=== PATIENT | female | born 1945 | race Caucasian/White ===

== ENCOUNTER 2017-10-18 16:01 | Inpatient (IN) | payer SELFPAY ==
[2017-10-18] MEDS ORDERED: NACL 0.9% 1000 ML IV ONE (16:24)
[2017-10-18] MEDS ORDERED: D50W (25GM) Syringe IV ONE ×3 (16:36→19:58)
[2017-10-18 16:40] LABS: Hematocrit 29.7 % (30.3-42.9); Hemoglobin 10.1 gm/dl (10.1-14.3); Mean Corpuscular HGB Conc 34 % (30-34); Mean Corpuscular Hemoglobin 35 pg (28-32); Mean Corpuscular Volume 102 fl (79-97); Red Blood Count 2.91 M/mm3 (3.65-5.03); Red Cell Distribution Width 19.5 % (13.2-15.2)
[2017-10-18] MEDS ORDERED: D50W (25GM) Vial IV ONE (16:52)
[2017-10-18 16:59] LABS: Alanine Aminotransferase 35 units/L (7-56); Albumin 1.7 g/dL (3.9-5); BUN/Creatinine Ratio 52; Blood Urea Nitrogen 31 mg/dL (7-17); Calcium 7.3 mg/dL (8.4-10.2); Hemolysis Index 37
[2017-10-18 17:10] LABS: Bacteria,Urine 1+ /HPF (Negative); Bilirubin,Urine NEG (Negative); Blood,Urine NEG (Negative); Color,Urine Amber (Yellow); Mucus,Urine 3+ /HPF
[2017-10-18 17:10] LABS: Basophils % (Manual) 0 % (0.0-1.8); Eosinophils % (Manual) 0 % (0.0-4.3); Total Cells Counted 100
[2017-10-18 17:12] LABS: Anisocytosis 1+; Macrocytosis Few; Platelet Estimate Appears Decreased
[2017-10-18 17:13] LABS: Poikilocytosis 1+
[2017-10-18 17:14] LABS: Platelet Count 35 K/mm3 (140-440)
--- NOTE | 2017-10-18 17:24 | XRay Report ---
FINAL REPORT PROCEDURE: XR CHEST 1V AP TECHNIQUE: A portable AP chest radiograph was obtained at 10/18/2017 20:52 (T) . CPT 34150 HISTORY: Dyspnea. COMPARISON: No prior studies are available for comparison. FINDINGS: Heart: Normal. Mediastinum/Vessels: Aortic calcification and tortuosity. Prominence of the pulmonary arteries. Lungs/Pleural space: Mild hyperinflation. Diffuse peribronchial thickening and interstitial prominence. More focal left retrocardiac opacity. Bony thorax: Moderate osteopenia. Degenerative changes of the spine. Possible minimally displaced right 4th and 5th rib fractures. Life support devices: None. IMPRESSION: Aortic calcification and tortuosity. Prominence of the pulmonary arteries, consider pulmonary hypertension. Hyperinflation suggests obstructive physiology. Peribronchial thickening, consider bronchitis/pneumonitis. Diffuse interstitial prominence. More focal left retrocardiac opacity. Consider atelectasis, cannot exclude pneumonia.
[2017-10-18 17:46] LABS: Chol/HDL Ratio 24.37 %
[2017-10-18] MEDS ORDERED: NACL 0.9% 1000 ML 1,000 ML IV ONE (18:00)
--- NOTE | 2017-10-18 18:05 | Emergency Department Report ---
HPI - General Chief Complaint: Altered Mental Status Time Seen by Provider: 10/18/17 16:01 - HPI HPI: The patient is a 71-year-old female with a history of cirrhosis, who presents for evaluation of cough and fever. The patient's daughter, the patient has exhibited a productive cough and fever for the past 3 days, associated with decreased drowziness and fatigue, severe, exacerbated with exertion, constant for the past one day. Per EMS the patient was found to have a fever, some to 101.2 Fahrenheit, and low blood pressure and O2 sat on scene. The patient denies headache, neck pain or stiffness, chest pain, back pain, hemoptysis, dysuria, diarrhea. ED Past Medical Hx - Social History Smoking Status: Unknown if ever smoked ED Review of Systems ROS: Stated complaint: UNRESPONSIVE Other details as noted in HPI Constitutional: denies: fever ENT: denies: throat or neck pain Respiratory: reports cough, shortness of breath Cardiovascular: denies: chest pain Endocrine: denies unexplained weight loss or gain Gastrointestinal: denies: abdominal pain, nausea Genitourinary: denies: dysuria Musculoskeletal: denies: leg swelling Skin: denies: rash Neurological: reports AMS (per daughter) denies: headache Hematological/Lymphatic: denies: easy bleeding or easy bruising Psych: denies sadness or hopelessness Physical Exam - Physical Exam Vital Signs: Vital Signs 10/18/17 10/18/17 16:58 17:00 Temperature 98.1 F Pulse Rate 124 H Respiratory 20 20 Rate Blood Pressure 130/79 [Right] O2 Sat by Pulse 100 100 Oximetry Physical Exam: General: well-nourished, well-developed, no acute distress Head: Normocephalic, atraumatic Eyes: normal sclera ENT: Mucous membranes are pale and dry Neck: No neck stiffness, no cervical adenopathy Respiratory: Diminished breath sounds and rhonchi present and bibasilar lung durán Cardio: S1 and S2 present, no murmurs, rubs, gallops, capillary refill is delayed Abdomen: Normoactive bowel sounds, soft abdomen, no rigidity, no guarding or rebound tenderness Musc: No pitting edema Skin: No rash Neuro: no facial drooping, normal speech Psych: Normal affect ED Course Vital Signs 10/18/17 10/18/17 16:58 17:00 Temperature 98.1 F Pulse Rate 124 H Respiratory 20 20 Rate Blood Pressure 130/79 [Right] O2 Sat by Pulse 100 100 Oximetry ED Medical Decision Making - Lab Data Result diagrams: 10/18/17 16:34 10/18/17 16:34 - Medical Decision Making The patient was seen and examined by myself. The patient is placed on a clinical research monitor and continuous pulse ox. On initial evaluation, the patient was found to be in respiratory distress, with severe tachycardia. The patient is placed on supplemental oxygen, and given normal saline fluid boluses for treatment of her tachycardia and dehydration. Evaluation orders were placed. X -ray of the chest reveals temperature concerning for pneumonia. As the patient was found to be febrile per EMS, and is found to have tachycardia and pneumonia on evaluation, the patient will be treated for sepsis. The patient given Zosyn for treatment of sepsis secondary to pneumonia, and she was given 30 cc/kg fluid bolus. Multiple bedside assessments were performed to assess patient's responsiveness to fluids resuscitation. Lab results reveal severely low sodium level, 117, elevated potassium level of 5.7, elevated wbc of 14, severely elevated lactic acid of 8, low glucose, for which she was given an amp of D50, elevated TSH, low free T4, and elevated urine WBC. The on-call hospitalist service was contacted. They agreed to admit the patient for further treatment and close monitoring. The ED admit order was placed. The patient was admitted in guarded condition. Critical Care Time: Yes Critical care time in (mins) excluding proc time.: 35 Critical care attestation.: Due to the critical nature of this patients presentation, which necessitated multiple bedside assessments, manipulation and supportive measures to prevent further life threatening deterioration, I would like to bill for a total of 35 minutes of critical care time. This was exclusive of any separately billable procedures. Critical Care Time: 35 min ED Disposition Clinical Impression: Severe dehydration, Acute hyperkalemia, Lactic acidosis, Hypoglycemia, Acute hyponatremia Sepsis Qualifiers: Sepsis type: sepsis due to unspecified organism Qualified Code(s): A41.9 - Sepsis, unspecified organism Disposition: OP ADMIT IP TO THIS HOSP Is pt being admited?: Yes Does the pt Need Aspirin: Yes Condition: Critical Referrals: PRIMARY CARE, [Primary Care Provider] - 3-5 Days Time of Disposition: 17:01
[2017-10-18] MEDS ORDERED: PROVENTIL IH PRN (18:06)
[2017-10-18] MEDS ORDERED: SODIUM CHLORIDE FLUSH SYRINGE 10 ML IV PRN (18:06)
[2017-10-18] MEDS ORDERED: TYLENOL PO PRN (18:06)
[2017-10-18] MEDS ORDERED: ZOFRAN IV PRN (18:06)
[2017-10-18] MEDS ORDERED: VANCOMYCIN 750 MG in NACL 0.9% 500 ML 500 ML IV ONE (18:06)
[2017-10-18] MEDS ORDERED: ASPIRIN PR ONE (18:06)
--- NOTE | 2017-10-18 18:10 | History and Physical Report ---
History of Present Illness Chief complaint: Unresponsive History of present illness: 71 YO Female with HCV, Cirrhosis, presents to ED for evaluation. Pt is lethargic and unable to provide history. Pt history provided by daughter, who is at bedside during exam and interview. As per daughter, the patient has experienced fever, and productive cough over the past 3 days with persistent symptoms over the same time frame. Pt was found to be confused today by daughter, and EMS was notified. Upon arrival, the patient was found to be hypotensive. Pt transported to [facility] for further care and evaluation. Pt seen and evaluated in ED and found to have Sepsis, Encephalopathy, and Lactic Acidosis. Pt initiated on Sepsis protocol and admitted to telemetry. Past History Past Medical History: hepatitis Past Surgical History: No surgical history (reviewed) Social history: single. denies: smoking, alcohol abuse, prescription drug abuse Family history: no significant family history (reviewed) Medications and Allergies Allergies Allergy/AdvReac Type Severity Reaction Status Date / Time Unable to Assess Allergy Unverified 10/18/17 17:00 Active Meds: Active Medications Acetaminophen (Tylenol) 650 mg PO Q4H PRN PRN Reason: Pain MILD(1-3)/Fever >100.5/FITZPATRICK Albuterol (Proventil) 2.5 mg IH Q4HRT PRN PRN Reason: Shortness Of Breath Piperacillin Sod/Tazobactam Sod (Zosyn/Ns 3.375gm/50ml) 3.375 gm in 50 mls @ 100 mls/hr IV Q6HR DANIEL Sodium Chloride (Nacl 0.9% 1000 Ml) 1,000 mls @ 999 mls/hr IV BOLUS ONE Stop: 10/18/17 19:00 Vancomycin HCl 750 mg/ Sodium (Chloride) 507.5 mls @ 333 mls/hr IV ONCE ONE; Protocol Stop: 10/18/17 19:37 Piperacillin Sod/Tazobactam Sod (Zosyn/Ns 4.5gm/100ml) 4.5 gm in 100 mls @ 200 mls/hr IV Q8HR DANIEL; Protocol Ondansetron HCl (Zofran) 4 mg IV Q8H PRN PRN Reason: Nausea And Vomiting Sodium Chloride (Sodium Chloride Flush Syringe 10 Ml) 10 ml IV BID DANIEL Sodium Chloride (Sodium Chloride Flush Syringe 10 Ml) 10 ml IV PRN PRN PRN Reason: LINE FLUSH Review of Systems ROS unobtainable: due to mental status Exam - Constitutional Vitals: Temp Pulse Resp BP Pulse Ox 98.1 F 124 H 20 130/79 100 10/18/17 17:00 10/18/17 17:00 10/18/17 17:00 10/18/17 17:00 10/18/17 17:00 General appearance: Present: mild distress - EENT Eyes: Present: miosis - Neck Neck: Present: supple, normal ROM - Respiratory Respiratory effort: labored Respiratory: bilateral: diminished - Cardiovascular Rhythm: other (tachycardia) Heart Sounds: Present: S1 & S2. Absent: rub, click - Extremities Extremities: pulses symmetrical, No edema Peripheral Pulses: abnormal (capillary refill greater than 3.5 seconds) - Abdominal General gastrointestinal: Present: soft, non-tender, non-distended, normal bowel sounds Female genitourinary: Present: normal - Integumentary Integumentary: Present: clear, warm, dry - Musculoskeletal Musculoskeletal: generalized weakness - Psychiatric Psychiatric: no intact judgment & insight, no memory intact Results - Labs CBC & Chem 7: 10/18/17 16:34 10/18/17 18:30 Labs: Abnormal lab results 10/18/17 10/18/17 10/18/17 Range/Units 16:28 16:34 16:34 WBC 14.0 H (4.5-11.0) K/mm3 RBC 2.91 L (3.65-5.03) M/mm3 Hct 29.7 L (30.3-42.9) % MCV 102 H (79-97) fl MCH 35 H (28-32) pg RDW 19.5 H (13.2-15.2) % Plt Count 35 L (140-440) K/mm3 Seg Neuts % (Manual) 97 H (40.0-70.0) % Lymphocytes % (Manual) 2 L (13.4-35.0) % Seg Neutrophils # Man 13.5 H (1.8-7.7) K/mm3 Lymphocytes # (Manual) 0.2 L (1.2-5.4) K/mm3 POC ABG pCO2 (35-45) POC ABG pO2 (80-105) Sodium (137-145) mmol/L Potassium (3.6-5.0) mmol/L Chloride (98-107) mmol/L Carbon Dioxide (22-30) mmol/L BUN (7-17) mg/dL Creatinine (0.7-1.2) mg/dL Glucose (65-100) mg/dL POC Glucose (70-105) Lactic Acid (0.7-2.0) mmol/L Calcium (8.4-10.2) mg/dL Total Bilirubin (0.1-1.2) mg/dL AST (5-40) units/L Alkaline Phosphatase (35-129) units/L Total Creatine Kinase (30-135) units/L Troponin T 0.032 H (0.00-0.029) ng/mL Total Protein (6.3-8.2) g/dL Albumin (3.9-5) g/dL Triglycerides 269 H (2-149) mg/dL HDL Cholesterol 8 L (40-59) mg/dL Urine WBC (Auto) 18.0 H (0.0-6.0) /HPF 10/18/17 10/18/17 10/18/17 Range/Units 16:34 16:34 16:34 WBC (4.5-11.0) K/mm3 RBC (3.65-5.03) M/mm3 Hct (30.3-42.9) % MCV (79-97) fl MCH (28-32) pg RDW (13.2-15.2) % Plt Count (140-440) K/mm3 Seg Neuts % (Manual) (40.0-70.0) % Lymphocytes % (Manual) (13.4-35.0) % Seg Neutrophils # Man (1.8-7.7) K/mm3 Lymphocytes # (Manual) (1.2-5.4) K/mm3 POC ABG pCO2 (35-45) POC ABG pO2 (80-105) Sodium 117 L* (137-145) mmol/L Potassium 5.7 H (3.6-5.0) mmol/L Chloride 82.0 L (98-107) mmol/L Carbon Dioxide 15 L (22-30) mmol/L BUN 31 H (7-17) mg/dL Creatinine 0.6 L (0.7-1.2) mg/dL Glucose 61 L (65-100) mg/dL POC Glucose (70-105) Lactic Acid 8.30 H* (0.7-2.0) mmol/L Calcium 7.3 L (8.4-10.2) mg/dL Total Bilirubin 2.60 H (0.1-1.2) mg/dL AST 162 H (5-40) units/L Alkaline Phosphatase 179 H (35-129) units/L Total Creatine Kinase 706 H (30-135) units/L Troponin T (0.00-0.029) ng/mL Total Protein 5.0 L (6.3-8.2) g/dL Albumin 1.7 L (3.9-5) g/dL Triglycerides (2-149) mg/dL HDL Cholesterol (40-59) mg/dL Urine WBC (Auto) (0.0-6.0) /HPF 10/18/17 10/18/17 Range/Units 16:40 16:42 WBC (4.5-11.0) K/mm3 RBC (3.65-5.03) M/mm3 Hct (30.3-42.9) % MCV (79-97) fl MCH (28-32) pg RDW (13.2-15.2) % Plt Count (140-440) K/mm3 Seg Neuts % (Manual) (40.0-70.0) % Lymphocytes % (Manual) (13.4-35.0) % Seg Neutrophils # Man (1.8-7.7) K/mm3 Lymphocytes # (Manual) (1.2-5.4) K/mm3 POC ABG pCO2 22.0 L (35-45) POC ABG pO2 177 H (80-105) Sodium (137-145) mmol/L Potassium (3.6-5.0) mmol/L Chloride (98-107) mmol/L Carbon Dioxide (22-30) mmol/L BUN (7-17) mg/dL Creatinine (0.7-1.2) mg/dL Glucose (65-100) mg/dL POC Glucose 51 L (70-105) Lactic Acid (0.7-2.0) mmol/L Calcium (8.4-10.2) mg/dL Total Bilirubin (0.1-1.2) mg/dL AST (5-40) units/L Alkaline Phosphatase (35-129) units/L Total Creatine Kinase (30-135) units/L Troponin T (0.00-0.029) ng/mL Total Protein (6.3-8.2) g/dL Albumin (3.9-5) g/dL Triglycerides (2-149) mg/dL HDL Cholesterol (40-59) mg/dL Urine WBC (Auto) (0.0-6.0) /HPF Assessment and Plan - Patient Problems (1) Sepsis Current Visit: Yes Status: Acute Qualifiers: Sepsis type: sepsis due to unspecified organism Qualified Code(s): A41.9 - Sepsis, unspecified organism Plan to address problem: IVF resuscitation therapy, monitor uop q shift, serial lactic acid, CBC, CMP, blood cultures, urinalysis, IV antibiotic therapy (2) Hyponatremia syndrome Current Visit: Yes Status: Acute Plan to address problem: IVF resuscitation therapy, (3) Encephalopathy Current Visit: Yes Status: Acute Plan to address problem: CT Head, neuro check, aspiration precautions, neuro checks, (4) Hypoglycemia Current Visit: Yes Status: Acute Plan to address problem: D5, repeat serum glucose (5) Lactic acidosis Current Visit: Yes Status: Acute Plan to address problem: IV bicarbonate x1, treat sepsis, ivf resuscitation, serial lactic acid (6) Hypothyroid coma Current Visit: Yes Status: Acute Plan to address problem: IV synthroid, supportive care (7) DVT prophylaxis Current Visit: Yes Status: Acute Plan to address problem: scd to ble while in bed
[2017-10-18] MEDS ORDERED: NACL 0.9% 1000 ML 3,000 ML IV ONE (18:12)
[2017-10-18] MEDS: ZOSYN/NS 3.375GM/50ML 3.375 GM/50 ML BAG IV SCH ×2 (18:17→23:48)
[2017-10-18] MEDS ORDERED: SODIUM BICARBONATE IV ONE ×2 (18:21→19:00)
[2017-10-18] MEDS ORDERED: VANCOMYCIN 750 MG in NACL 0.9% 250ML 250 ML IV ONE (19:00)
[2017-10-18 19:07] LABS: BUN/Creatinine Ratio 47; Blood Urea Nitrogen 28 mg/dL (7-17); Calcium 6.6 mg/dL (8.4-10.2); Hemolysis Index 21
[2017-10-18 19:27] LABS: Free T4 (Free Thyroxine) 0.62 ng/dL (0.76-1.46)
[2017-10-18] MEDS ORDERED: ZOSYN/NS 4.5GM/100ML 4.5 GM/100 ML VIAL IV SCH (22:00)
[2017-10-18] MEDS: SODIUM CHLORIDE FLUSH SYRINGE 10 ML IV SCH (23:49)
[2017-10-19] MEDS ORDERED: SYNTHROID IV SCH (06:00)
[2017-10-19] MEDS: ZOSYN/NS 3.375GM/50ML 3.375 GM/50 ML BAG IV SCH ×2 (06:46→12:11)
[2017-10-19 10:17] VITALS: BP 98/56
[2017-10-19] MEDS: SYNTHROID IV SCH (10:51)
[2017-10-19] MEDS: SODIUM CHLORIDE FLUSH SYRINGE 10 ML IV SCH ×2 (10:51→23:31)
[2017-10-19] MEDS ORDERED: D50W (25GM) Syringe IV ONE (11:00)
[2017-10-19 11:14] LABS: BUN/Creatinine Ratio 54; Blood Urea Nitrogen 27 mg/dL (7-17); Calcium 6.8 mg/dL (8.4-10.2); Hemolysis Index 735
--- NOTE | 2017-10-19 11:42 | Consultation ---
History of Present Illness - Reason for Consult Consult date: 10/19/17 hyponatremia, hyperkalemia - History of Present Illness The patient is a 71 YO Female with history significant for HCV and Cirrhosis who presented to ED for evaluation of AMS. Patient is not able to provide any history and the family members speak very little Burmese. History was also obtained from previous documentation. Per daughter, the patient had experienced fever and productive cough for 3 days with persistent symptoms. Pt was found to be confused and EMS transported to the ER. The patient was found hypotensive in [facility] ER. Pt was admitted for Sepsis, Encephalopathy, Hyponatremia and Lactic Acidosis. Initial labs were significant for Na 117, K 5.7 and Lactate 8.3. Sodium level improved to 126 and K improved to 5. Past History Past Medical History: hepatitis Past Surgical History: No surgical history (reviewed) Social history: single. denies: smoking, alcohol abuse, prescription drug abuse Family history: no significant family history (reviewed) Medications and Allergies Allergies Allergy/AdvReac Type Severity Reaction Status Date / Time No Known Allergies Allergy Unverified 10/20/17 06:34 Active Meds: Active Medications Acetaminophen (Tylenol) 650 mg PO Q4H PRN PRN Reason: Pain MILD(1-3)/Fever >100.5/FITZPATRICK Albuterol (Proventil) 2.5 mg IH Q4HRT PRN PRN Reason: Shortness Of Breath Piperacillin Sod/Tazobactam Sod (Zosyn/Ns 3.375gm/50ml) 3.375 gm in 50 mls @ 100 mls/hr IV Q6HR DANIEL Last Admin: 10/19/17 06:46 Dose: 100 mls/hr Sodium Chloride (Nacl 0.9% 1000 Ml) 3,000 mls @ 125 mls/hr IV BOLUS ONE Stop: 10/19/17 17:59 Last Admin: 10/18/17 18:35 Dose: 125 mls/hr Vancomycin HCl (Vancomycin/Ns 500 Mg/100 Ml) 500 mg in 100 mls @ 66.667 mls/hr IV Q24H DANIEL Sodium Chloride (Nacl 0.9% 1000 Ml) 1,000 mls @ 125 mls/hr IV DIRECT DANIEL Levothyroxine Sodium (Synthroid) 100 mcg IV DAILY DANIEL Last Admin: 10/19/17 10:51 Dose: 100 mcg Ondansetron HCl (Zofran) 4 mg IV Q8H PRN PRN Reason: Nausea And Vomiting Sodium Chloride (Sodium Chloride Flush Syringe 10 Ml) 10 ml IV BID DANIEL Last Admin: 10/19/17 10:51 Dose: 10 ml Sodium Chloride (Sodium Chloride Flush Syringe 10 Ml) 10 ml IV PRN PRN PRN Reason: LINE FLUSH Review of Systems ROS unobtainable: due to mental status Exam - Vital Signs Vital signs: Vital Signs Resp Pulse Ox 20 100 10/18/17 16:58 10/18/17 16:58 - General Appearance General appearance: well-developed, appears stated age, chronically ill, other ( emaciated) EENT: ATNC Neck: Present: neck supple, trachea midline Respiratory: Clear to Ascultation Heart: regular, S1S2, no murmurs Gastrointestinal: Present: normoactive bowel sounds. Absent: tenderness Integumentary: no rash, warm and dry Neurologic: obtunded Musculoskeletal: Present: other (trace pedal edema noted) Results - Lab Results 10/20/17 04:59 10/20/17 04:59 Most recent lab results Calcium 6.8 mg/dL (8.4-10.2) L 10/19/17 10:42 Assessment and Plan 1. Hyponatremia: Hyponatremia likely secondary to volume depletion. Sodium level has improved appropriately. Monitor Sodium level. 2. Hyperkalemia: Improved. 3. Metabolic acidosis: Continue IV fluids. 4. Sepsis. 5. Respiratory failure. 6. Encephalopathy. D/w family members.
[2017-10-19] MEDS: NACL 0.9% 1000 ML 1,000 ML IV SCH ×2 (12:15→20:17)
[2017-10-19] MEDS ORDERED: SODIUM BICARBONATE IV ONE ×3 (12:28→15:30)
--- NOTE | 2017-10-19 12:41 | Progress Note ---
Assessment and Plan Assessment and plan: Patient is a 71 yo Portuguese speaking woman with a history of Cirrhosis per chart (first visit here in EMR) who presented with AMS, cough, fever. She was found to have temp of 101.2 Fahrenheit, hypotension and hypoxia per EMS. Patient is not giving any history. Patient is critically ill on my initial assessment, she is arousable only by deep sternal rub, on NRB 100% fiO2. I will move to ICU. * WBC 14.0, Hgb 10.1, MCV 102, plt 35 * Na 117, k 5.4, CO2 14, BUN 28, Cr 0.6, BG 51, lactic acid 7.0, albumin 1.7, Troponin T 0.272, Ca 6.6, Total biliriubin 2.6, Alk Phos 162, AST 162, ALT 35, CPK 706, * TSH 5.060 with free t4 0.62 * UA wbc 18, 1+ bacteria * pCXR IMPRESSION: Aortic calcification and tortuosity. Prominence of the pulmonary arteries, consider pulmonary hypertension. Hyperinflation suggests obstructive physiology. Peribronchial thickening, consider bronchitis/ pneumonitis. Diffuse interstitial prominence. More focal left retrocardiac opacity. Consider atelectasis, cannot exclude pneumonia. -Acute hypoxic respiratory failure, poa: On 100% NRB, transfer to ICU, she is breathing hard and will fatigue -Sepsis with Acute Aspiration Pneumonitis and UTI: on iv zosyn, and iv vancomycin, follow cultures -Severe Hyponatremia syndrome: restart IVF resuscitation therapy which was not continued, consulted Nephrology, -Acute Undifferentiated Encephalopathy: CT Head stat, neuro check, aspiration precautions, check ammonia level -Hypoglycemia: D5, repeat serum glucose -Elevated troponin: consult Cardiology, unable to use heparin or asa due to severe thrombocytopenia, no bb due to borderline low bp, get ECHO -Metabolic acidosis s/p bicarbonate: d/w Dr. Brunson, renal -Hypothyroidism: IV synthroid, supportive care -End stage Liver disease: consult GI -Severe malnutrition, bmi 16.4 poa: consult Photographer -Severe thrombocytopenia, plt 35, multifactorial, most likely due to End stage liver disease, sepsis: consult Heme/onc -DVT prophylaxis: scd to ble while in bed -Advance care planning: full code, family still deciding about DNR status guarded prognosis, critically ill CT head, ammonia level, repeat bmp, ECHO, EKG Cardiology,CCM,Renal,GI, Heme/onc/Photographer consulted Get [facility] old records CCT 36 minutes History Interval history: Patient was seen and examined. Follow-up on current diagnosis of AMS, still present. Patient is not talking. Imaging, nursing note, chart, labs and old chart reviewed. Discussed with nurse and daughter Barbara at bedside. We discussed code status. Usually oldest daughter makes medical decision and she is on her way. [employer] used when Barbara at bedside. Then family came with granddaughter who was the motor vehicle parts interpreter. I came back and had a prolonged 15 minute Code status discussion and they are still deciding. It appears she was recently at [facility] x 13 days, had paracentesis and sent home on lasix and aldactone by Dr. Felice Bolanos. They said patient has been deterioting weight loss. They are not aware of of any liver problems prior to [facility] hospitalization. Hospitalist Physical - Physical exam Narrative exam: GEN: cachetic, critically ill, semi-comatose, moderate increase usage of accessory muscles, bmi only 16.4, HEENT: sunken wasting restorationist muscles bilateral pupils react bilateral, OP very dry NECK: supple, no adenopathy, thyromegaly, no JVD CVS/HEART: Regular tachy normal S1S2, pulses present bilaterally CHEST/LUNGS: coarse bs bilateral with diminished bs bilateral, purse lip breathing, Symmetrical chest expansion, reduced air entry bilaterally GI/Abdomen: distended, positive bowel sounds, no guarding or rebound /Bladder: no suprapubic tenderness, no CVA or paraspinal tenderness EXT/Skin: dry, cap refill approx 2 sec, poor skin turgor MSK: not moving Neuro: CN 2-12 grossly intact, not following commands Psych: confused - Constitutional Vitals: Temp Pulse Resp BP Pulse Ox 100.4 F H 122 H 18 98/56 100 10/19/17 09:13 10/19/17 09:43 10/19/17 09:13 10/19/17 09:13 10/19/17 09:43 General appearance: Absent: mild distress Results - Labs CBC & Chem 7: 10/18/17 16:34 10/19/17 10:42 Labs: Laboratory Last Values WBC 14.0 K/mm3 (4.5-11.0) H 10/18/17 16:34 RBC 2.91 M/mm3 (3.65-5.03) L 10/18/17 16:34 Hgb 10.1 gm/dl (10.1-14.3) 10/18/17 16:34 Hct 29.7 % (30.3-42.9) L 10/18/17 16:34 MCV 102 fl (79-97) H 10/18/17 16:34 MCH 35 pg (28-32) H 10/18/17 16:34 MCHC 34 % (30-34) 10/18/17 16:34 RDW 19.5 % (13.2-15.2) H 10/18/17 16:34 Plt Count 35 K/mm3 (140-440) L 10/18/17 16:34 Add Manual Diff Complete 10/18/17 16:34 Total Counted 100 10/18/17 16:34 Seg Neutrophils % [employer] 10/18/17 16:34 Seg Neuts % (Manual) 97 % (40.0-70.0) H 10/18/17 16:34 Band Neutrophils % 0 % 10/18/17 16:34 Lymphocytes % (Manual) 2 % (13.4-35.0) L 10/18/17 16:34 Reactive Lymphs % (Man) 0 % 10/18/17 16:34 Monocytes % (Manual) 1.0 % (0.0-7.3) 10/18/17 16:34 Eosinophils % (Manual) 0 % (0.0-4.3) 10/18/17 16:34 Basophils % (Manual) 0 % (0.0-1.8) 10/18/17 16:34 Metamyelocytes % 0 % 10/18/17 16:34 Myelocytes % 0 % 10/18/17 16:34 Promyelocytes % 0 % 10/18/17 16:34 Blast Cells % 0 % 10/18/17 16:34 Nucleated RBC % Not Reportable 10/18/17 16:34 Seg Neutrophils # Man 13.5 K/mm3 (1.8-7.7) H 10/18/17 16:34 Band Neutrophils # 0.0 K/mm3 10/18/17 16:34 Lymphocytes # (Manual) 0.2 K/mm3 (1.2-5.4) L 10/18/17 16:34 Abs React Lymphs (Man) 0.0 K/mm3 10/18/17 16:34 Monocytes # (Manual) 0.1 K/mm3 (0.0-0.8) 10/18/17 16:34 Eosinophils # (Manual) 0.0 K/mm3 (0.0-0.4) 10/18/17 16:34 Basophils # (Manual) 0.0 K/mm3 (0.0-0.1) 10/18/17 16:34 Metamyelocytes # 0.0 K/mm3 10/18/17 16:34 Myelocytes # 0.0 K/mm3 10/18/17 16:34 Promyelocytes # 0.0 K/mm3 10/18/17 16:34 Blast Cells # 0.0 K/mm3 10/18/17 16:34 WBC Morphology Not Reportable 10/18/17 16:34 Hypersegmented Neuts Not Reportable 10/18/17 16:34 Hyposegmented Neuts Not Reportable 10/18/17 16:34 Hypogranular Neuts Not Reportable 10/18/17 16:34 Smudge Cells Not Reportable 10/18/17 16:34 Toxic Granulation Not Reportable 10/18/17 16:34 Toxic Vacuolation Not Reportable 10/18/17 16:34 Dohle Bodies Not Reportable 10/18/17 16:34 Pelger-Huet Anomaly Not Reportable 10/18/17 16:34 Marisa Rods Not Reportable 10/18/17 16:34 Platelet Estimate Appears decreased 10/18/17 16:34 Clumped Platelets Not Reportable 10/18/17 16:34 Plt Clumps, EDTA Not Reportable 10/18/17 16:34 Large Platelets Not Reportable 10/18/17 16:34 Giant Platelets Not Reportable 10/18/17 16:34 Platelet Satelliting Not Reportable 10/18/17 16:34 Plt Morphology Comment Not Reportable 10/18/17 16:34 RBC Morphology Not Reportable 10/18/17 16:34 Dimorphic RBCs Not Reportable 10/18/17 16:34 Polychromasia Not Reportable 10/18/17 16:34 Hypochromasia Not Reportable 10/18/17 16:34 Poikilocytosis 1+ 10/18/17 16:34 Anisocytosis 1+ 10/18/17 16:34 Microcytosis Not Reportable 10/18/17 16:34 Macrocytosis Few 10/18/17 16:34 Spherocytes Not Reportable 10/18/17 16:34 Pappenheimer Bodies Not Reportable 10/18/17 16:34 Sickle Cells Not Reportable 10/18/17 16:34 Target Cells Not Reportable 10/18/17 16:34 Tear Drop Cells Not Reportable 10/18/17 16:34 Ovalocytes Not Reportable 10/18/17 16:34 Helmet Cells Not Reportable 10/18/17 16:34 Freed-Flaxton Bodies Not Reportable 10/18/17 16:34 [place] Rings Not Reportable 10/18/17 16:34 Slater Cells Not Reportable 10/18/17 16:34 Bite Cells Not Reportable 10/18/17 16:34 Crenated Cell Not Reportable 10/18/17 16:34 Elliptocytes Not Reportable 10/18/17 16:34 Acanthocytes (Spur) Not Reportable 10/18/17 16:34 Rouleaux Not Reportable 10/18/17 16:34 Hemoglobin C Crystals Not Reportable 10/18/17 16:34 Schistocytes Not Reportable 10/18/17 16:34 Malaria parasites Not Reportable 10/18/17 16:34 Oracio Bodies Not Reportable 10/18/17 16:34 Hem Pathologist Commnt No 10/18/17 16:34 POC ABG pH 7.423 (7.35-7.45) 10/18/17 16:42 POC ABG pCO2 22.0 (35-45) L 10/18/17 16:42 POC ABG pO2 177 (80-105) H 10/18/17 16:42 POC ABG HCO3 14.4 10/18/17 16:42 POC ABG Total CO2 15 10/18/17 16:42 POC ABG O2 Sat 100 10/18/17 16:42 POC ABG Base Excess -10 10/18/17 16:42 FiO2 100 % 10/18/17 16:42 Sodium TNR 10/19/17 10:42 Potassium Not Reportable 10/19/17 10:42 Chloride 89.4 mmol/L (98-107) L 10/19/17 10:42 Carbon Dioxide Not Reportable 10/19/17 10:42 Anion Gap Not Reportable 10/19/17 10:42 BUN 27 mg/dL (7-17) H 10/19/17 10:42 Creatinine 0.5 mg/dL (0.7-1.2) L 10/19/17 10:42 Estimated GFR > 60 ml/min 10/19/17 10:42 BUN/Creatinine Ratio 54 % 10/19/17 10:42 Glucose 73 mg/dL (65-100) 10/19/17 10:42 POC Glucose 51 (70-105) L 10/18/17 16:40 Lactic Acid 6.90 mmol/L (0.7-2.0) H* 10/19/17 10:42 Calcium 6.8 mg/dL (8.4-10.2) L 10/19/17 10:42 Total Bilirubin 2.60 mg/dL (0.1-1.2) H 10/18/17 16:34 AST 162 units/L (5-40) H 10/18/17 16:34 ALT 35 units/L (7-56) 10/18/17 16:34 Alkaline Phosphatase 179 units/L (35-129) H 10/18/17 16:34 Total Creatine Kinase 706 units/L (30-135) H 10/18/17 16:34 Troponin T 0.272 ng/mL (0.00-0.029) H* D 10/18/17 20:17 Total Protein 5.0 g/dL (6.3-8.2) L 10/18/17 16:34 Albumin 1.7 g/dL (3.9-5) L 10/18/17 16:34 Albumin/Globulin Ratio 0.5 % 10/18/17 16:34 Triglycerides 269 mg/dL (2-149) H 10/18/17 16:34 Cholesterol 195 mg/dL (50-199) 10/18/17 16:34 LDL Cholesterol Direct 85 mg/dL (50-130) 10/18/17 16:34 HDL Cholesterol 8 mg/dL (40-59) L 10/18/17 16:34 Cholesterol/HDL Ratio 24.37 % 10/18/17 16:34 Lipase 29 units/L (13-60) 10/18/17 16:34 TSH 5.060 mlU/mL (0.270-4.200) H 10/18/17 18:30 Free T4 0.62 ng/dL (0.76-1.46) L 10/18/17 18:30 Urine Color Flaca (Yellow) 10/18/17 16: Urine Turbidity Clear (Clear) 10/18/17 16: Urine pH 5.0 (5.0-7.0) 10/18/17 16: Ur Specific [place] 1.021 (1.003-1.030) 10/18/17 16: Urine Protein 30 mg/dl mg/dL (Negative) 10/18/17 16: Urine Glucose (UA) Neg mg/dL (Negative) 10/18/17 16 Urine Ketones Tr mg/dL (Negative) 10/18/17 16: Urine Blood Neg (Negative) 10/18/17 16: Urine Nitrite Neg (Negative) 10/18/17 16: Urine Bilirubin Neg (Negative) 10/18/17 16: Urine Urobilinogen 4.0 mg/dL (<2.0) 10/18/17 16: Ur Leukocyte Esterase Neg (Negative) 10/18/17 16: Urine WBC (Auto) 18.0 /HPF (0.0-6.0) H 10/18/17 16: Urine RBC (Auto) 45.0 /HPF (0.0-6.0) 10/18/17 16: U Epithel Cells (Auto) 4.0 /HPF (0-13.0) 10/18/17 16: Urine Bacteria (Auto) 1+ /HPF (Negative) 10/18/17 16: Urine Mucus 3+ /HPF 10/18/17 16: Plasma/Serum Alcohol < 0.01 % (0-0.07) 10/18/17 18:30
[2017-10-19] MEDS ORDERED: VANCOMYCIN PHARMACY TO DOSE IV SCH (14:00)
[2017-10-19 14:09] LABS: BUN/Creatinine Ratio 93; Blood Urea Nitrogen 28 mg/dL (7-17); Calcium 7.6 mg/dL (8.4-10.2); Hemolysis Index 106
--- NOTE | 2017-10-19 14:44 | Cat Scan Report ---
FINAL REPORT EXAM: CT HEAD/BRAIN WO CON HISTORY: AMS TECHNIQUE: CT of the Head without IV contrast. PRIORS: None currently available. FINDINGS: Decreased attenuation regions in the periventricular and subcortical white matter are nonspecific and may represent small vessel ischemic disease, encephalopathy, edema, or a demyelinating process. Small vessel ischemic disease (leukoaroaiosis) favored. Vascular calcifications. There is no evidence for acute ischemia. There is no hemorrhage. There is no midline shift. There is no hydrocephalus. There is no mass. Age appropriate nance-white matter attenuation is noted. Age-related basal ganglia calcifications. There is no calvarial fracture. The temporal bones demonstrate aerated mastoid air cells. The middle ears appear unremarkable. Paranasal sinuses are unremarkable. Globes are intact. IMPRESSION: No acute intracranial findings. Chronic ischemic disease.
--- NOTE | 2017-10-19 16:41 | Consultation ---
History of Present Illness - Reason for Consult Consult date: 10/19/17 Encephalopathy Requesting physician: NITHYA TOVAR - History of Present Illness 71 y/o tajik speaking only female, brought in by family to ED secondary to rapid shallow breathing per the daughter at bedside. She was admitted 3 weeks ago to [facility] and per the family was diagnosed with Liver Disease. She was discharged and then followed up with a Dr. Tyler. Per the daughter, she was given two medications and then discharged. Those meds were Spironolactone and lasix. Patient was hyponatremic on arrival and hypotensive. Per the daughter, and son at bedside, patient was speaking to them or at least making an attempt to speak to them on yesterday. Today, on my exam, she is breathing but is unresponsive, minimally responsive to sternal rub. Per the family this is an acute change from yesterday. A Head CT was ordered which was negative for acute change. The family could not tell me any more history or anything else about the liver disease. Currently patient is on non-rebreather. Sats are stable. Past History Past Medical History: hepatitis Past Surgical History: No surgical history (reviewed) Social history: single. denies: smoking, alcohol abuse, prescription drug abuse Family history: no significant family history (reviewed) Medications and Allergies Allergies Allergy/AdvReac Type Severity Reaction Status Date / Time Unable to Assess Allergy Unverified 10/18/17 17:00 Active Meds: Active Medications Acetaminophen (Tylenol) 650 mg PO Q4H PRN PRN Reason: Pain MILD(1-3)/Fever >100.5/FITZPATRICK Albuterol (Proventil) 2.5 mg IH Q4HRT PRN PRN Reason: Shortness Of Breath Vancomycin HCl (Vancomycin/Ns 500 Mg/100 Ml) 500 mg in 100 mls @ 66.667 mls/hr IV Q24H DANIEL Sodium Chloride (Nacl 0.9% 1000 Ml) 1,000 mls @ 125 mls/hr IV DIRECT DANIEL Last Admin: 10/19/17 12:15 Dose: 125 mls/hr Piperacillin Sod/Tazobactam Sod (Zosyn/Ns 2.25 Gm/50ml) 2.25 gm in 50 mls @ 100 mls/hr IV Q6HR DANIEL Levothyroxine Sodium (Synthroid) 100 mcg PO DAILY@0600 DANIEL Levothyroxine Sodium (Synthroid) 100 mcg IV DAILY@0600 [facility] Ondansetron HCl (Zofran) 4 mg IV Q8H PRN PRN Reason: Nausea And Vomiting Sodium Chloride (Sodium Chloride Flush Syringe 10 Ml) 10 ml IV BID [facility] Last Admin: 10/19/17 10:51 Dose: 10 ml Sodium Chloride (Sodium Chloride Flush Syringe 10 Ml) 10 ml IV PRN PRN PRN Reason: LINE FLUSH Vancomycin HCl (Vancomycin Pharmacy To Dose) 1 each IV PKCONSULT DANIEL; Protocol Review of Systems ROS unobtainable: due to mental status Exam - Constitutional Vitals: Temp Pulse Resp BP Pulse Ox 100.4 F H 122 H 18 98/56 100 10/19/17 09:13 10/19/17 09:43 10/19/17 09:13 10/19/17 09:13 10/19/17 12:20 General appearance: Present: disheveled, other (stuporous) - EENT Eyes: Present: scleral icterus - Neck Neck: Present: supple - Respiratory Respiratory effort: normal Respiratory: bilateral: diminished (but clear) - Cardiovascular Rhythm: regular Heart Sounds: Present: S1 & S2 - Extremities Extremities: no ischemia - Abdominal General gastrointestinal: Present: soft Results - Labs CBC & Chem 7: 10/18/17 16:34 10/19/17 13:27 Labs: Abnormal lab results 10/18/17 10/18/17 10/18/17 Range/Units 16:28 16:34 16:34 WBC 14.0 H (4.5-11.0) K/mm3 RBC 2.91 L (3.65-5.03) M/mm3 Hct 29.7 L (30.3-42.9) % MCV 102 H (79-97) fl MCH 35 H (28-32) pg RDW 19.5 H (13.2-15.2) % Plt Count 35 L (140-440) K/mm3 Seg Neuts % (Manual) 97 H (40.0-70.0) % Lymphocytes % (Manual) 2 L (13.4-35.0) % Seg Neutrophils # Man 13.5 H (1.8-7.7) K/mm3 Lymphocytes # (Manual) 0.2 L (1.2-5.4) K/mm3 POC ABG pH (7.35-7.45) POC ABG pCO2 (35-45) POC ABG pO2 (80-105) Sodium (137-145) mmol/L Potassium (3.6-5.0) mmol/L Chloride (98-107) mmol/L Carbon Dioxide (22-30) mmol/L BUN (7-17) mg/dL Creatinine (0.7-1.2) mg/dL Glucose (65-100) mg/dL POC Glucose (70-105) Lactic Acid (0.7-2.0) mmol/L Calcium (8.4-10.2) mg/dL Total Bilirubin (0.1-1.2) mg/dL AST (5-40) units/L Alkaline Phosphatase (35-129) units/L Total Creatine Kinase (30-135) units/L Troponin T 0.032 H (0.00-0.029) ng/mL Total Protein (6.3-8.2) g/dL Albumin (3.9-5) g/dL Triglycerides 269 H (2-149) mg/dL HDL Cholesterol 8 L (40-59) mg/dL TSH (0.270-4.200) mlU/mL Free T4 (0.76-1.46) ng/dL Urine WBC (Auto) 18.0 H (0.0-6.0) /HPF 10/18/17 10/18/17/ Range/Units 16:34 16:34 16:34 WBC (4.5-11.0) K/mm3 RBC (3.65-5.03) M/mm3 Hct (30.3-42.9) % MCV (79-97) fl MCH (28-32) pg RDW (13.2-15.2) % Plt Count (140-440) K/mm3 Seg Neuts % (Manual) (40.0-70.0) % Lymphocytes % (Manual) (13.4-35.0) % Seg Neutrophils # Man (1.8-7.7) K/mm3 Lymphocytes # (Manual) (1.2-5.4) K/mm3 POC ABG pH (7.35-7.45) POC ABG pCO2 (35-45) POC ABG pO2 (80-105) Sodium 117 L* (137-145) mmol/L Potassium 5.7 H (3.6-5.0) mmol/L Chloride 82.0 L (98-107) mmol/L Carbon Dioxide 15 L (22-30) mmol/L BUN 31 H (7-17) mg/dL Creatinine 0.6 L (0.7-1.2) mg/dL Glucose 61 L (65-100) mg/dL POC Glucose (70-105) Lactic Acid 8.30 H* (0.7-2.0) mmol/L Calcium 7.3 L (8.4-10.2) mg/dL Total Bilirubin 2.60 H (0.1-1.2) mg/dL AST 162 H (5-40) units/L Alkaline Phosphatase 179 H (35-129) units/L Total Creatine Kinase 706 H (30-135) units/L Troponin T (0.00-0.029) ng/mL Total Protein 5.0 L (6.3-8.2) g/dL Albumin 1.7 L (3.9-5) g/dL Triglycerides (2-149) mg/dL HDL Cholesterol (40-59) mg/dL TSH (0.270-4.200) mlU/mL Free T4 (0.76-1.46) ng/dL Urine WBC (Auto) (0.0-6.0) /HPF 10/18/17 10/18/17 10/18/17 Range/Units 16:40 16:42 18:30 WBC (4.5-11.0) K/mm3 RBC (3.65-5.03) M/mm3 Hct (30.3-42.9) % MCV (79-97) fl MCH (28-32) pg RDW (13.2-15.2) % Plt Count (140-440) K/mm3 Seg Neuts % (Manual) (40.0-70.0) % Lymphocytes % (Manual) (13.4-35.0) % Seg Neutrophils # Man (1.8-7.7) K/mm3 Lymphocytes # (Manual) (1.2-5.4) K/mm3 POC ABG pH (7.35-7.45) POC ABG pCO2 22.0 L (35-45) POC ABG pO2 177 H (80-105) Sodium (137-145) mmol/L Potassium (3.6-5.0) mmol/L Chloride (98-107) mmol/L Carbon Dioxide (22-30) mmol/L BUN (7-17) mg/dL Creatinine (0.7-1.2) mg/dL Glucose (65-100) mg/dL POC Glucose 51 L (70-105) Lactic Acid 8.50 H* (0.7-2.0) mmol/L Calcium (8.4-10.2) mg/dL Total Bilirubin (0.1-1.2) mg/dL AST (5-40) units/L Alkaline Phosphatase (35-129) units/L Total Creatine Kinase (30-135) units/L Troponin T (0.00-0.029) ng/mL Total Protein (6.3-8.2) g/dL Albumin (3.9-5) g/dL Triglycerides (2-149) mg/dL HDL Cholesterol (40-59) mg/dL TSH (0.270-4.200) mlU/mL Free T4 (0.76-1.46) ng/dL Urine WBC (Auto) (0.0-6.0) /HPF 10/18/17 10/18/17 10/18/17 Range/Units 18:30 18:30 20:17 WBC (4.5-11.0) K/mm3 RBC (3.65-5.03) M/mm3 Hct (30.3-42.9) % MCV (79-97) fl MCH (28-32) pg RDW (13.2-15.2) % Plt Count (140-440) K/mm3 Seg Neuts % (Manual) (40.0-70.0) % Lymphocytes % (Manual) (13.4-35.0) % Seg Neutrophils # Man (1.8-7.7) K/mm3 Lymphocytes # (Manual) (1.2-5.4) K/mm3 POC ABG pH (7.35-7.45) POC ABG pCO2 (35-45) POC ABG pO2 (80-105) Sodium 119 L* (137-145) mmol/L Potassium 5.4 H (3.6-5.0) mmol/L Chloride 86.1 L (98-107) mmol/L Carbon Dioxide 14 L (22-30) mmol/L BUN 28 H (7-17) mg/dL Creatinine 0.6 L (0.7-1.2) mg/dL Glucose 116 H (65-100) mg/dL POC Glucose (70-105) Lactic Acid (0.7-2.0) mmol/L Calcium 6.6 L (8.4-10.2) mg/dL Total Bilirubin (0.1-1.2) mg/dL AST (5-40) units/L Alkaline Phosphatase (35-129) units/L Total Creatine Kinase (30-135) units/L Troponin T 0.272 H* D (0.00-0.029) ng/mL Total Protein (6.3-8.2) g/dL Albumin (3.9-5) g/dL Triglycerides (2-149) mg/dL HDL Cholesterol (40-59) mg/dL TSH 5.060 H (0.270-4.200) mlU/mL Free T4 0.62 L (0.76-1.46) ng/dL Urine WBC (Auto) (0.0-6.0) /HPF 10/18/17 10/18/17 10/19/17 Range/Units 20:38 22:37 00:11 WBC (4.5-11.0) K/mm3 RBC (3.65-5.03) M/mm3 Hct (30.3-42.9) % MCV (79-97) fl MCH (28-32) pg RDW (13.2-15.2) % Plt Count (140-440) K/mm3 Seg Neuts % (Manual) (40.0-70.0) % Lymphocytes % (Manual) (13.4-35.0) % Seg Neutrophils # Man (1.8-7.7) K/mm3 Lymphocytes # (Manual) (1.2-5.4) K/mm3 POC ABG pH (7.35-7.45) POC ABG pCO2 (35-45) POC ABG pO2 (80-105) Sodium (137-145) mmol/L Potassium (3.6-5.0) mmol/L Chloride (98-107) mmol/L Carbon Dioxide (22-30) mmol/L BUN (7-17) mg/dL Creatinine (0.7-1.2) mg/dL Glucose (65-100) mg/dL POC Glucose (70-105) Lactic Acid 8.80 H* 7.00 H* 8.10 H* (0.7-2.0) mmol/L Calcium (8.4-10.2) mg/dL Total Bilirubin (0.1-1.2) mg/dL AST (5-40) units/L Alkaline Phosphatase (35-129) units/L Total Creatine Kinase (30-135) units/L Troponin T (0.00-0.029) ng/mL Total Protein (6.3-8.2) g/dL Albumin (3.9-5) g/dL Triglycerides (2-149) mg/dL HDL Cholesterol (40-59) mg/dL TSH (0.270-4.200) mlU/mL Free T4 (0.76-1.46) ng/dL Urine WBC (Auto) (0.0-6.0) /HPF 10/19/17 10/19/17 10/19/17 Range/Units 02:15 05:26 08:14 WBC (4.5-11.0) K/mm3 RBC (3.65-5.03) M/mm3 Hct (30.3-42.9) % MCV (79-97) fl MCH (28-32) pg RDW (13.2-15.2) % Plt Count (140-440) K/mm3 Seg Neuts % (Manual) (40.0-70.0) % Lymphocytes % (Manual) (13.4-35.0) % Seg Neutrophils # Man (1.8-7.7) K/mm3 Lymphocytes # (Manual) (1.2-5.4) K/mm3 POC ABG pH (7.35-7.45) POC ABG pCO2 (35-45) POC ABG pO2 (80-105) Sodium (137-145) mmol/L Potassium (3.6-5.0) mmol/L Chloride (98-107) mmol/L Carbon Dioxide (22-30) mmol/L BUN (7-17) mg/dL Creatinine (0.7-1.2) mg/dL Glucose (65-100) mg/dL POC Glucose (70-105) Lactic Acid 7.20 H* 7.20 H* 6.40 H* (0.7-2.0) mmol/L Calcium (8.4-10.2) mg/dL Total Bilirubin (0.1-1.2) mg/dL AST (5-40) units/L Alkaline Phosphatase (35-129) units/L Total Creatine Kinase (30-135) units/L Troponin T (0.00-0.029) ng/mL Total Protein (6.3-8.2) g/dL Albumin (3.9-5) g/dL Triglycerides (2-149) mg/dL HDL Cholesterol (40-59) mg/dL TSH (0.270-4.200) mlU/mL Free T4 (0.76-1.46) ng/dL Urine WBC (Auto) (0.0-6.0) /HPF 10/19/17 10/19/17 10/19/17 Range/Units 10:42 10:42 12:43 WBC (4.5-11.0) K/mm3 RBC (3.65-5.03) M/mm3 Hct (30.3-42.9) % MCV (79-97) fl MCH (28-32) pg RDW (13.2-15.2) % Plt Count (140-440) K/mm3 Seg Neuts % (Manual) (40.0-70.0) % Lymphocytes % (Manual) (13.4-35.0) % Seg Neutrophils # Man (1.8-7.7) K/mm3 Lymphocytes # (Manual) (1.2-5.4) K/mm3 POC ABG pH 7.471 H (7.35-7.45) POC ABG pCO2 22.1 L (35-45) POC ABG pO2 186 H (80-105) Sodium (137-145) mmol/L Potassium (3.6-5.0) mmol/L Chloride 89.4 L (98-107) mmol/L Carbon Dioxide (22-30) mmol/L BUN 27 H (7-17) mg/dL Creatinine 0.5 L (0.7-1.2) mg/dL Glucose (65-100) mg/dL POC Glucose (70-105) Lactic Acid 6.90 H* (0.7-2.0) mmol/L Calcium 6.8 L (8.4-10.2) mg/dL Total Bilirubin (0.1-1.2) mg/dL AST (5-40) units/L Alkaline Phosphatase (35-129) units/L Total Creatine Kinase (30-135) units/L Troponin T (0.00-0.029) ng/mL Total Protein (6.3-8.2) g/dL Albumin (3.9-5) g/dL Triglycerides (2-149) mg/dL HDL Cholesterol (40-59) mg/dL TSH (0.270-4.200) mlU/mL Free T4 (0.76-1.46) ng/dL Urine WBC (Auto) (0.0-6.0) /HPF 10/19/17 Range/Units 13:27 WBC (4.5-11.0) K/mm3 RBC (3.65-5.03) M/mm3 Hct (30.3-42.9) % MCV (79-97) fl MCH (28-32) pg RDW (13.2-15.2) % Plt Count (140-440) K/mm3 Seg Neuts % (Manual) (40.0-70.0) % Lymphocytes % (Manual) (13.4-35.0) % Seg Neutrophils # Man (1.8-7.7) K/mm3 Lymphocytes # (Manual) (1.2-5.4) K/mm3 POC ABG pH (7.35-7.45) POC ABG pCO2 (35-45) POC ABG pO2 (80-105) Sodium 126 L D (137-145) mmol/L Potassium (3.6-5.0) mmol/L Chloride 94.7 L (98-107) mmol/L Carbon Dioxide 14 L (22-30) mmol/L BUN 28 H (7-17) mg/dL Creatinine 0.3 L (0.7-1.2) mg/dL Glucose 131 H (65-100) mg/dL POC Glucose (70-105) Lactic Acid (0.7-2.0) mmol/L Calcium 7.6 L (8.4-10.2) mg/dL Total Bilirubin (0.1-1.2) mg/dL AST (5-40) units/L Alkaline Phosphatase (35-129) units/L Total Creatine Kinase (30-135) units/L Troponin T (0.00-0.029) ng/mL Total Protein (6.3-8.2) g/dL Albumin (3.9-5) g/dL Triglycerides (2-149) mg/dL HDL Cholesterol (40-59) mg/dL TSH (0.270-4.200) mlU/mL Free T4 (0.76-1.46) ng/dL Urine WBC (Auto) (0.0-6.0) /HPF - Imaging and Cardiology Chest x-ray: image reviewed (hyperinflation but otherwise clear) Assessment and Plan 71 y/o female with some form of Liver disease, admitted with encephalopathy. 1. Place NG 2. lactulose 30ml [id number] until BM 3. Patient with GP in blood cultures, already on Vanc will continue 4. Will change abx therapy to cover for SBP given history below 5. Consider repeat ultrasound to look for asicities to tap. If patient has been taking the diurectic, may be volume deplete and encephalopathic from this. Will continue IVF resuscitation Received records from [place]: Summary Just arrived from [place] Per family no other medical problems Has lower ext edema and coagulopathy at [place]. Treated with FFP and Vitamin K for elevated INR Had paracentesis done that had 1377 WBC, concern for SBP (removed 780) Blood cultures grew out E. Coli Treated briefly with Rocephin, then discharged on Cipro and Spironolactone Had MRI of abdomen that did not show mass in liver, only cirrhosis, also questionable portal vein thrombosis Hepatitis panel per [facility] records not reactive Was seen by [facility]
--- NOTE | 2017-10-19 18:17 | XRay Report ---
FINAL REPORT EXAM: XR ABDOMEN 1V AP HISTORY: dobhoff placement COMPARISON: None available. FINDINGS: AP view of the abdomen obtained. Distal tip of feeding tube projects over the mid stomach. This could be advanced 13 centimeters to be within the duodenum. Gas-filled prominence of a bowel loop in the mid abdomen. IMPRESSION: Distal tip of feeding tube projects over the mid stomach.
--- NOTE | 2017-10-19 20:43 | Consultation ---
History of Present Illness - Reason for Consult Consult date: 10/19/17 Cirrhosis - History of Present Illness Ms. Esdras Narayan is a 71-year-old woman admitted for evaluation of fever and cough for portal vein thrombosis within the main portal vein extending into the proximal right and left veins was noted as well. The spleen was enlarged. Progressive weakness and fatigue. She was admitted and found to be hypoxic and admitted to the ICU. She was also poorly responsive. Of note, she is known to our service from an admission in early August at [facility]. She came in with ascites and had SBP that was treated. She was evaluated with an MRI which showed portal vein thrombosis and an otherwise cirrhotic liver. She was seen in the office once in follow-up. Family was advised at that time that patient basically had end-stage liver disease though we did not know the etiology. They deny abdominal pain nausea or vomiting or GI bleeding. There has been no diarrhea. Serologic evaluation at [facility] showed a positive SAMANTHA and elevated anti- mitochondrial antibodies and hepatitis serologies were negative. Her INR there was elevated at 1.75. She had approximately 2 L of ascites drained which showed 85% neutrophils. MRI findings there showed advanced changes of cirrhosis with a shrunken nodular liver. There were multiple nodules there but there was no evidence of malignancy. Past History Past Medical History: hepatitis, liver disease (End-stage cirrhosis, etiology unclear, but may be autoimmune or PBC. Pt has ascites, thrombocytopenia, coagulopathy, and a hx of SBP.), other Past Surgical History: No surgical history (reviewed) Social history: single. denies: smoking, alcohol abuse, prescription drug abuse Family history: no significant family history (reviewed) Medications and Allergies Allergies Allergy/AdvReac Type Severity Reaction Status Date / Time Unable to Assess Allergy Unverified 10/18/17 17:00 Active Meds: Active Medications Albuterol (Proventil) 2.5 mg IH Q4HRT PRN PRN Reason: Shortness Of Breath Vancomycin HCl (Vancomycin/Ns 500 Mg/100 Ml) 500 mg in 100 mls @ 66.667 mls/hr IV Q24H DANIEL Sodium Chloride (Nacl 0.9% 1000 Ml) 1,000 mls @ 125 mls/hr IV DIRECT DANIEL Last Admin: 10/19/17 20:17 Dose: 125 mls/hr Piperacillin Sod/Tazobactam Sod (Zosyn/Ns 2.25 Gm/50ml) 2.25 gm in 50 mls @ 100 mls/hr IV Q6HR [facility] Levothyroxine Sodium (Synthroid) 100 mcg IV DAILY@0600 [facility] Ondansetron HCl (Zofran) 4 mg IV Q8H PRN PRN Reason: Nausea And Vomiting Sodium Chloride (Sodium Chloride Flush Syringe 10 Ml) 10 ml IV BID DANIEL Last Admin: 10/19/17 10:51 Dose: 10 ml Sodium Chloride (Sodium Chloride Flush Syringe 10 Ml) 10 ml IV PRN PRN PRN Reason: LINE FLUSH Vancomycin HCl (Vancomycin Pharmacy To Dose) 1 each IV PKCONSULT DANIEL; Protocol Review of Systems ROS unobtainable: due to mental status Exam - Constitutional Vitals: Temp Pulse Resp BP Pulse Ox 100.4 F H 122 H 18 98/56 100 10/19/17 09:13 10/19/17 18:10 10/19/17 09:13 10/19/17 09:13 10/19/17 20:22 General appearance: Present: no acute distress, other (on mask oxygen, poorly responsive) - EENT Eyes: Present: PERRL, EOM intact - Respiratory Respiratory effort: labored Respiratory: bilateral: CTA (anteriorly) - Cardiovascular Rhythm: regular Heart Sounds: Present: S1 & S2 - Extremities Extremities: No edema - Abdominal General gastrointestinal: Present: soft, non-tender, non-distended Results - Labs CBC & Chem 7: 10/18/17 16:34 10/19/17 13:27 Labs: Abnormal lab results 10/18/17 10/18/17 10/18/17 Range/Units 20:17 20:38 22:37 POC ABG pH (7.35-7.45) POC ABG pCO2 (35-45) POC ABG pO2 (80-105) Sodium (137-145) mmol/L Chloride (98-107) mmol/L Carbon Dioxide (22-30) mmol/L BUN (7-17) mg/dL Creatinine (0.7-1.2) mg/dL Glucose (65-100) mg/dL POC Glucose (70-105) Lactic Acid 8.80 H* 7.00 H* (0.7-2.0) mmol/L Calcium (8.4-10.2) mg/dL Troponin T 0.272 H* D (0.00-0.029) ng/mL 10/19/17 10/19/17 10/19/17 Range/Units 00:11 02:15 05:26 POC ABG pH (7.35-7.45) POC ABG pCO2 (35-45) POC ABG pO2 (80-105) Sodium (137-145) mmol/L Chloride (98-107) mmol/L Carbon Dioxide (22-30) mmol/L BUN (7-17) mg/dL Creatinine (0.7-1.2) mg/dL Glucose (65-100) mg/dL POC Glucose (70-105) Lactic Acid 8.10 H* 7.20 H* 7.20 H* (0.7-2.0) mmol/L Calcium (8.4-10.2) mg/dL Troponin T (0.00-0.029) ng/mL 10/19/17 10/19/17 10/19/17 Range/Units 08:14 10:42 10:42 POC ABG pH (7.35-7.45) POC ABG pCO2 (35-45) POC ABG pO2 (80-105) Sodium (137-145) mmol/L Chloride 89.4 L (98-107) mmol/L Carbon Dioxide (22-30) mmol/L BUN 27 H (7-17) mg/dL Creatinine 0.5 L (0.7-1.2) mg/dL Glucose (65-100) mg/dL POC Glucose (70-105) Lactic Acid 6.40 H* 6.90 H* (0.7-2.0) mmol/L Calcium 6.8 L (8.4-10.2) mg/dL Troponin T (0.00-0.029) ng/mL 10/19/17 10/19/17 10/19/17 Range/Units 12:43 13:27 17:14 POC ABG pH 7.471 H (7.35-7.45) POC ABG pCO2 22.1 L (35-45) POC ABG pO2 186 H (80-105) Sodium 126 L D (137-145) mmol/L Chloride 94.7 L (98-107) mmol/L Carbon Dioxide 14 L (22-30) mmol/L BUN 28 H (7-17) mg/dL Creatinine 0.3 L (0.7-1.2) mg/dL Glucose 131 H (65-100) mg/dL POC Glucose 149 H (70-105) Lactic Acid (0.7-2.0) mmol/L Calcium 7.6 L (8.4-10.2) mg/dL Troponin T (0.00-0.029) ng/mL Assessment and Plan 1. 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 Will check quantitative immunoglobulin levels. Based on evaluation at [facility], patient has advanced disease with thrombocytopenia, portal hypertension, and a history of SBP. While her current situation is suggestive of an infectious process and possibly pulmonary , given the lack of findings on chest x-ray, and the fact that she had SBP in the past, it is appropriate to consider that as an etiology. Patient is already on antibiotics. Ultrasound and paracentesis, if ascites is present, would be appropriate for diagnostic evaluation. Overall poor prognosis of the patient was explained to the daughters. - Check quantitative immunoglobulins. - Continue antibiotics and supportive care. - Ultrasound with paracentesis if ascites is present.
[2017-10-19 21:28] LABS: BUN/Creatinine Ratio 68; Blood Urea Nitrogen 27 mg/dL (7-17); Calcium 7.6 mg/dL (8.4-10.2); Hemolysis Index 63
[2017-10-20] MEDS: ZOSYN/NS 2.25 GM/50ML 2.25 GM/50 ML BAG IV SCH ×4 (00:46→11:29)
[2017-10-20] MEDS ORDERED: NORCO 5/325 PO PRN (02:36)
[2017-10-20] MEDS ORDERED: MORPHINE IV PRN (03:12)
[2017-10-20] MEDS ORDERED: ROXICODONE PO PRN (03:13)
[2017-10-20] MEDS: NACL 0.9% 1000 ML 1,000 ML IV SCH ×2 (03:30→12:40)
[2017-10-20] MEDS ORDERED: SYNTHROID PO SCH (06:00)
[2017-10-20] MEDS ORDERED: SYNTHROID IV SCH (06:00)
[2017-10-20 06:12] LABS: Hematocrit 25.5 % (30.3-42.9); Mean Corpuscular HGB Conc 35 % (30-34); Mean Corpuscular Hemoglobin 35 pg (28-32); Mean Corpuscular Volume 99 fl (79-97); Red Blood Count 2.58 M/mm3 (3.65-5.03); Red Cell Distribution Width 19.4 % (13.2-15.2)
[2017-10-20 06:13] LABS: Platelet Count 69 K/mm3 (140-440)
[2017-10-20 06:23] LABS: INR 1.86 (0.87-1.13)
[2017-10-20 06:24] LABS: Partial Thromboplastin Time 45.4 Sec. (24.2-36.6)
[2017-10-20 06:33] LABS: Erythrocyte Sedimentation Rate 35 mm/Hr (0-20)
[2017-10-20 06:48] LABS: Alanine Aminotransferase 50 units/L (7-56); Albumin 1.5 g/dL (3.9-5); BUN/Creatinine Ratio 90; Blood Urea Nitrogen 27 mg/dL (7-17); Calcium 7.8 mg/dL (8.4-10.2); Hemolysis Index 1; Uric Acid 4.4 mg/dL (3.5-7.6)
--- NOTE | 2017-10-20 09:18 | Progress Note ---
Subjective Date of service: 10/20/17 Interval history: CONSULT DICTATED Objective Vital Signs Temp Pulse Resp Pulse Ox 10/20/17 08:00 98.6 F 122 H 100 10/20/17 07:56 99 10/19/17 22:00 22 98 10/19/17 20:22 100 10/19/17 18:10 122 H 100 10/19/17 12:20 100 10/19/17 09:43 122 H 100 - Labs and Meds Cardiac Enzymes 10/20/17 Range/Units 04:59 AST 222 H (5-40) units/L Coagulation 10/20/17 Range/Units 04:59 PT 22.6 H (12.2-14.9) Sec. INR 1.86 H (0.87-1.13) APTT 45.4 H (24.2-36.6) Sec. CBC 10/20/17 Range/Units 04:59 WBC 12.9 H (4.5-11.0) K/mm3 RBC 2.58 L (3.65-5.03) M/mm3 Hgb 9.0 L (10.1-14.3) gm/dl Hct 25.5 L (30.3-42.9) % Plt Count 69 L (140-440) K/mm3 Comprehensive Metabolic Panel 10/19/17 10/19/17 10/19/17 Range/Units 10:42 13:27 20:10 Sodium TNR 126 L D 127 L Potassium Not Reportable 5.0 4.3 Chloride 89.4 L 94.7 L 94.7 L (98-107) mmol/L Carbon Dioxide Not Reportable 14 L 17 L BUN 27 H 28 H 27 H (7-17) mg/dL Creatinine 0.5 L 0.3 L 0.4 L (0.7-1.2) mg/dL Glucose 73 131 H 110 H (65-100) mg/dL Calcium 6.8 L 7.6 L 7.6 L (8.4-10.2) mg/dL AST (5-40) units/L ALT (7-56) units/L Alkaline Phosphatase (35-129) units/L Total Protein (6.3-8.2) g/dL Albumin (3.9-5) g/dL 10/20/17 Range/Units 04:59 Sodium 131 L Potassium 4.0 Chloride 100.7 (98-107) mmol/L Carbon Dioxide 19 L BUN 27 H (7-17) mg/dL Creatinine 0.3 L (0.7-1.2) mg/dL Glucose 112 H (65-100) mg/dL Calcium 7.8 L (8.4-10.2) mg/dL AST 222 H (5-40) units/L ALT 50 (7-56) units/L Alkaline Phosphatase 124 (35-129) units/L Total Protein 4.3 L (6.3-8.2) g/dL Albumin 1.5 L (3.9-5) g/dL
--- NOTE | 2017-10-20 09:43 | Event Note ---
Date: 10/20/17 Records reviewed, asked to see for thrombocytopenia, PLT count 69,000.Full eval , and w/up to follow.
--- NOTE | 2017-10-20 09:46 | Consultation ---
HISTORY OF PRESENT ILLNESS: The patient is a 71-year-old female with a history of cirrhosis who was recently hospitalized at [facility] where the diagnosis was made. She presented with fever and a productive cough for the past 3 days. She was lethargic and confused. She was also found to be hypotensive. A Cardiology consult was requested because of positive cardiac enzymes. There is no history of cardiac symptoms, heart disease of any type, hypertension, diabetes, hyperlipidemia, smoking or heavy alcohol use. She recently moved here from [place]. The patient is unable to give any history, the history was obtained from the medical record. There is no history of lung disease. She was also noted to have portal vein thrombosis at [facility]. The spleen was enlarged. She has been diagnosed with end-stage liver disease. There has been no GI bleeding reported. She was noted to have a positive SAMANTHA and antimitochondrial antibodies. She had ascites drained at [facility]. SOCIAL HISTORY: Smoking: None. Alcohol: No heavy use. FAMILY HISTORY: Noncontributory. PREVIOUS SURGERIES: None. ALLERGIES: None reported so far. MEDICATIONS: See the nurse's list. REVIEW OF SYSTEMS: She is on medication for hypothyroidism. There has been no chest pain, palpitations, dizziness, syncope, or claudication described. No skin disorders or arthritis were described. PHYSICAL EXAMINATION: GENERAL: Well-developed, petite, female on mechanical ventilation. EYES, NOSE, AND THROAT: Atraumatic. NECK: Reveals JVD. There are no bruits. Neck is supple, no masses. LUNGS: Diffuse rales and rhonchi. CARDIOVASCULAR: Regular rhythm, S4 gallop, no murmurs or rubs appreciable. ABDOMEN: Soft. Bowel sounds diminished. There is ascites present. EXTREMITIES: No cyanosis or clubbing. There is mild pedal edema. Peripheral pulses are intact. NEUROLOGIC: Grossly symmetrical. SKIN: Clear. LABORATORY DATA: EKG shows sinus rhythm, high lateral leads show diminished voltage and very mild ST elevation, no serial changes. IMPRESSION: 1. Suspect demand ischemia, resulting in mild elevation of the troponin. The patient is in sinus tachycardia secondary to the infectious process and possible sepsis. The troponin is minimally elevated. An echocardiogram will be performed and I would recommend at least three troponin levels. 2. End-stage cirrhosis with low albumin, elevated INR, ascites. Prognosis is poor. 3. Hyponatremia. 4. Anemia with thrombocytopenia. 5. Pneumonia and sepsis. Thank you for this consultation. JOB# [id number] MELISSA/KENYON
--- NOTE | 2017-10-20 11:07 | Progress Note ---
Assessment and Plan 71 y/o female with end stage liver cirrhosis, metabolic vs toxic encephalopathy 1. lactulose fell off, will reorder and attempt several doses to start BM's to see if this helps with encephalopathy 2. Continue volume resuscitation, gentle, Na is improved but has not helped with mental state 3. Had SBP before, treated but not unreasonable to have repeat infection, continue vanc and zosyn 4. Appreciate GI help and summary of records. I have started stress dose steroids. She did get one dose yesterday but it appears it fell off the MAR in transition to ICU so re-ordered again. 5. Elevated TSH could be secondary to occult disease, agree with synthroid therapy for now given current clinical state and several unknowns 6. patient is still breathing however is a huge aspiration risk, would like to no intubate as I do not believe that it will improve overall clinical state. Family is aware but still requests full code. No current indication as of right now to intubate, will continue to monitor but very high risk for this. 7. With liver disease and current mental state, appears that palliative and comfort measures would be best. I had a conversation with the daughter at the bedside this am and I let her know that the likely morrison of her mother improving is very low. She became tearful. her brother was not present. Overall prognosis is extremely guarded to poor. Will place on aspiration precautions. Received records from [place]: Summary Just arrived from [place] Per family no other medical problems Has lower ext edema and coagulopathy at [place]. Treated with FFP and Vitamin K for elevated INR Had paracentesis done that had 1377 WBC, concern for SBP (removed 2.6 liters) The 780 in my note from yesterday was wrong but is documented in one of the [facility] notes from [facility] Blood cultures grew out E. Coli Treated briefly with Rocephin, then discharged on Cipro and Spironolactone Had MRI of abdomen that did not show mass in liver, only cirrhosis, also questionable portal vein thrombosis Hepatitis panel per [place] records not reactive Was seen by Suzanne Haines Subjective Date of service: 10/20/17 Interval history: mental status is unchanged but was given morphine last night night for pain. Daughter is at bedside. Per her, patient moved all extremities and was more awake which is why she asked for pain medication. Patient remains unresponsive. Objective - Constitutional Vitals: Vital Signs - 12hr 10/20/17 10/20/17 07:56 08:00 Temperature 98.6 F Pulse Rate [ 122 H Apical] O2 Sat by Pulse 99 100 Oximetry General appearance: Present: other (stuporous to comatose) - EENT Eyes: scleral icterus - Neck Neck: supple - Respiratory Respiratory effort: normal Respiratory: bilateral: diminished - Breasts Breasts: deferred - Cardiovascular Rhythm: regular Heart Sounds: Present: S1 & S2 Extremities: no ischemia Extremity abnormal: edema - Gastrointestinal General gastrointestinal: Present: soft, distended Rectal Exam: deferred - Genitourinary Female genitourinary: deferred - Neurologic Neurologic: other (unable to exam secondary to mental state) - Labs CBC & Chem 7: 10/20/17 04:59 10/20/17 04:59 Labs: Abnormal lab results 10/19/17 10/19/17 10/19/17 Range/Units 10:42 10:42 12:43 WBC (4.5-11.0) K/mm3 RBC (3.65-5.03) M/mm3 Hgb (10.1-14.3) gm/dl Hct (30.3-42.9) % MCV (79-97) fl MCH (28-32) pg MCHC (30-34) % RDW (13.2-15.2) % Plt Count (140-440) K/mm3 PT (12.2-14.9) Sec. INR (0.87-1.13) APTT (24.2-36.6) Sec. POC ABG pH 7.471 H (7.35-7.45) POC ABG pCO2 22.1 L (35-45) POC ABG pO2 186 H (80-105) Sodium (137-145) mmol/L Chloride 89.4 L (98-107) mmol/L Carbon Dioxide (22-30) mmol/L BUN 27 H (7-17) mg/dL Creatinine 0.5 L (0.7-1.2) mg/dL Glucose (65-100) mg/dL POC Glucose (70-105) Lactic Acid 6.90 H* (0.7-2.0) mmol/L Calcium 6.8 L (8.4-10.2) mg/dL Total Bilirubin (0.1-1.2) mg/dL AST (5-40) units/L Troponin T (0.00-0.029) ng/mL Total Protein (6.3-8.2) g/dL Albumin (3.9-5) g/dL 10/19/17 10/19/17 10/19/17 Range/Units 13:27 17:14 20:10 WBC (4.5-11.0) K/mm3 RBC (3.65-5.03) M/mm3 Hgb (10.1-14.3) gm/dl Hct (30.3-42.9) % MCV (79-97) fl MCH (28-32) pg MCHC (30-34) % RDW (13.2-15.2) % Plt Count (140-440) K/mm3 PT (12.2-14.9) Sec. INR (0.87-1.13) APTT (24.2-36.6) Sec. POC ABG pH (7.35-7.45) POC ABG pCO2 (35-45) POC ABG pO2 (80-105) Sodium 126 L D 127 L (137-145) mmol/L Chloride 94.7 L 94.7 L (98-107) mmol/L Carbon Dioxide 14 L 17 L (22-30) mmol/L BUN 28 H 27 H (7-17) mg/dL Creatinine 0.3 L 0.4 L (0.7-1.2) mg/dL Glucose 131 H 110 H (65-100) mg/dL POC Glucose 149 H (70-105) Lactic Acid (0.7-2.0) mmol/L Calcium 7.6 L 7.6 L (8.4-10.2) mg/dL Total Bilirubin (0.1-1.2) mg/dL AST (5-40) units/L Troponin T (0.00-0.029) ng/mL Total Protein (6.3-8.2) g/dL Albumin (3.9-5) g/dL 10/19/1718 10/20/17 Range/Units 20:10 04:59 04:59 WBC 12.9 H (4.5-11.0) K/mm3 RBC 2.58 L (3.65-5.03) M/mm3 Hgb 9.0 L (10.1-14.3) gm/dl Hct 25.5 L (30.3-42.9) % MCV 99 H (79-97) fl MCH 35 H (28-32) pg MCHC 35 H (30-34) % RDW 19.4 H (13.2-15.2) % Plt Count 69 L (140-440) K/mm3 PT 22.6 H (12.2-14.9) Sec. INR 1.86 H (0.87-1.13) APTT 45.4 H (24.2-36.6) Sec. POC ABG pH (7.35-7.45) POC ABG pCO2 (35-45) POC ABG pO2 (80-105) Sodium (137-145) mmol/L Chloride (98-107) mmol/L Carbon Dioxide (22-30) mmol/L BUN (7-17) mg/dL Creatinine (0.7-1.2) mg/dL Glucose (65-100) mg/dL POC Glucose (70-105) Lactic Acid (0.7-2.0) mmol/L Calcium (8.4-10.2) mg/dL Total Bilirubin (0.1-1.2) mg/dL AST (5-40) units/L Troponin T 0.315 H* (0.00-0.029) ng/mL Total Protein (6.3-8.2) g/dL Albumin (3.9-5) g/dL 10/20/17 Range/Units 04:59 WBC (4.5-11.0) K/mm3 RBC (3.65-5.03) M/mm3 Hgb (10.1-14.3) gm/dl Hct (30.3-42.9) % MCV (79-97) fl MCH (28-32) pg MCHC (30-34) % RDW (13.2-15.2) % Plt Count (140-440) K/mm3 PT (12.2-14.9) Sec. INR (0.87-1.13) APTT (24.2-36.6) Sec. POC ABG pH (7.35-7.45) POC ABG pCO2 (35-45) POC ABG pO2 (80-105) Sodium 131 L (137-145) mmol/L Chloride (98-107) mmol/L Carbon Dioxide 19 L (22-30) mmol/L BUN 27 H (7-17) mg/dL Creatinine 0.3 L (0.7-1.2) mg/dL Glucose 112 H (65-100) mg/dL POC Glucose (70-105) Lactic Acid (0.7-2.0) mmol/L Calcium 7.8 L (8.4-10.2) mg/dL Total Bilirubin 3.10 H (0.1-1.2) mg/dL AST 222 H (5-40) units/L Troponin T (0.00-0.029) ng/mL Total Protein 4.3 L (6.3-8.2) g/dL Albumin 1.5 L (3.9-5) g/dL
[2017-10-20] MEDS: CEPHULAC PO PRN ×2 (11:32→15:24)
[2017-10-20] MEDS: SODIUM CHLORIDE FLUSH SYRINGE 10 ML IV SCH (11:41)
--- NOTE | 2017-10-20 13:40 | Progress Note ---
Assessment and Plan 1. Hyponatremia: Hyponatremia likely secondary to volume depletion. Sodium level has improved appropriately. Monitor Sodium level. 2. Hyperkalemia: Improved. 3. Metabolic acidosis: Improving. 4. Sepsis. 5. Respiratory failure. 6. Encephalopathy. Subjective Date of service: 10/20/17 Interval history: Patient was seen and examined at the bedside. Objective - Vital Signs Vital signs: Vital Signs - 12hr 10/20/17 10/20/17 10/20/17 07:56 08:00 10:00 Temperature 98.6 F Pulse Rate [ 122 H 122 H Apical] O2 Sat by Pulse 99 100 100 Oximetry - General Appearance General appearance: well-developed, cachectic EENT: ATNC Respiratory: Present: Clear to Ascultation Cardiology: S1S2, no murmurs Gastrointestinal: normoactive bowel sounds, no tenderness Integumentary: no rash, warm and dry Neurologic: obtunded Musculoskeletal: other (trace pedal edema noted) - Lab 10/20/17 04:59 10/20/17 04:59 Most recent lab results Calcium 7.8 mg/dL (8.4-10.2) L 10/20/17 04:59 Phosphorus 2.60 mg/dL (2.5-4.5) 10/19/17 11:43 Magnesium 1.70 mg/dL (1.7-2.3) 10/20/17 04:59
[2017-10-20] MEDS: VANCOMYCIN/NS 500 MG/100 ML 500 MG/100 ML BAG IV SCH ×2 (14:23→23:49)
[2017-10-20] MEDS: SYNTHROID IV SCH (14:24)
--- NOTE | 2017-10-20 14:51 | Progress Note ---
Assessment and Plan Assessment and plan: Patient is a 71 yo Setswana speaking woman with a history of Cirrhosis per chart (first visit here in EMR) who presented with AMS, cough, fever. She was found to have temp of 101.2 Fahrenheit, hypotension and hypoxia per EMS. Patient is not giving any history. Patient is critically ill on my initial assessment, she is arousable only by deep sternal rub, on NRB 100% fiO2. I will move to ICU. * WBC 14.0, Hgb 10.1, MCV 102, plt 35 * Na 117, k 5.4, CO2 14, BUN 28, Cr 0.6, BG 51, lactic acid 7.0, albumin 1.7, Troponin T 0.272, Ca 6.6, Total biliriubin 2.6, Alk Phos 162, AST 162, ALT 35, CPK 706, * TSH 5.060 with free t4 0.62 * UA wbc 18, 1+ bacteria * pCXR IMPRESSION: Aortic calcification and tortuosity. Prominence of the pulmonary arteries, consider pulmonary hypertension. Hyperinflation suggests obstructive physiology. Peribronchial thickening, consider bronchitis/ pneumonitis. Diffuse interstitial prominence. More focal left retrocardiac opacity. Consider atelectasis, cannot exclude pneumonia. -Acute hypoxic respiratory failure, poa: On 100% NRB, transfer to ICU, she is breathing hard and will fatigue -Sepsis with Acute Aspiration Pneumonitis and UTI: on iv zosyn, and iv vancomycin, follow cultures -Severe Hyponatremia syndrome: restart IVF resuscitation therapy which was not continued, consulted Nephrology, -Acute Undifferentiated Encephalopathy: CT Head stat, neuro check, aspiration precautions, check ammonia level -Hypoglycemia: D5, repeat serum glucose -Elevated troponin: consult Cardiology, unable to use heparin or asa due to severe thrombocytopenia, no bb due to borderline low bp, get ECHO -Metabolic acidosis s/p bicarbonate: d/w Dr. 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 Follow-up on current diagnosis of AMS, still present. Patient is not talking. Imaging, nursing note, chart, labs and old chart reviewed. Daughters at bedside. Pt minimally responsive Hospitalist Physical - Physical exam Narrative exam: GEN: cachetic, critically ill, semi-comatose, moderate increase usage of accessory muscles, bmi only 16.4, HEENT: sunken wasting confucianism muscles bilateral pupils react bilateral, OP very dry, ngt in place NECK: supple, no adenopathy, thyromegaly, no JVD CVS/HEART: Regular tachy normal S1S2, pulses present bilaterally CHEST/LUNGS: coarse bs bilateral with diminished bs bilateral, purse lip breathing, Symmetrical chest expansion, reduced air entry bilaterally GI/Abdomen: distended, positive bowel sounds, no guarding or rebound /Bladder: no suprapubic tenderness, no CVA or paraspinal tenderness EXT/Skin: dry, cap refill approx 2 sec, poor skin turgor MSK: not moving Neuro: CN 2-12 grossly intact, not following commands Psych: confused - Constitutional Vitals: Temp Pulse Resp BP Pulse Ox 98.6 F 122 H 22 98/56 100 10/20/17 08:00 10/20/17 10:00 10/19/17 22:00 10/19/17 09:13 10/20/17 10:00 General appearance: Present: other (stuporous to comatose) Results - Labs CBC & Chem 7: 10/20/17 04:59 10/20/17 04:59 Labs: Laboratory Last Values WBC 12.9 K/mm3 (4.5-11.0) H 10/20/17 04:59 RBC 2.58 M/mm3 (3.65-5.03) L 10/20/17 04:59 Hgb 9.0 gm/dl (10.1-14.3) L 10/20/17 04:59 Hct 25.5 % (30.3-42.9) L 10/20/17 04:59 MCV 99 fl (79-97) H 10/20/17 04:59 MCH 35 pg (28-32) H 10/20/17 04:59 MCHC 35 % (30-34) H 10/20/17 04:59 RDW 19.4 % (13.2-15.2) H 10/20/17 04:59 Plt Count 69 K/mm3 (140-440) L 10/20/17 04:59 Add Manual Diff Complete 10/18/17 16:34 Total Counted 100 10/18/17 16:34 Seg Neutrophils % Microbiology Instructor 10/18/17 16:34 Seg Neuts % (Manual) 97 % (40.0-70.0) H 10/18/17 16:34 Band Neutrophils % 0 % 10/18/17 16:34 Lymphocytes % (Manual) 2 % (13.4-35.0) L 10/18/17 16:34 Reactive Lymphs % (Man) 0 % 10/18/17 16:34 Monocytes % (Manual) 1.0 % (0.0-7.3) 10/18/17 16:34 Eosinophils % (Manual) 0 % (0.0-4.3) 10/18/17 16:34 Basophils % (Manual) 0 % (0.0-1.8) 10/18/17 16:34 Metamyelocytes % 0 % 10/18/17 16:34 Myelocytes % 0 % 10/18/17 16:34 Promyelocytes % 0 % 10/18/17 16:34 Blast Cells % 0 % 10/18/17 16:34 Nucleated RBC % Not Reportable 10/18/17 16:34 Seg Neutrophils # Man 13.5 K/mm3 (1.8-7.7) H 10/18/17 16:34 Band Neutrophils # 0.0 K/mm3 10/18/17 16:34 Lymphocytes # (Manual) 0.2 K/mm3 (1.2-5.4) L 10/18/17 16:34 Abs React Lymphs (Man) 0.0 K/mm3 10/18/17 16:34 Monocytes # (Manual) 0.1 K/mm3 (0.0-0.8) 10/18/17 16:34 Eosinophils # (Manual) 0.0 K/mm3 (0.0-0.4) 10/18/17 16:34 Basophils # (Manual) 0.0 K/mm3 (0.0-0.1) 10/18/17 16:34 Metamyelocytes # 0.0 K/mm3 10/18/17 16:34 Myelocytes # 0.0 K/mm3 10/18/17 16:34 Promyelocytes # 0.0 K/mm3 10/18/17 16:34 Blast Cells # 0.0 K/mm3 10/18/17 16:34 WBC Morphology Not Reportable 10/18/17 16:34 Hypersegmented Neuts Not Reportable 10/18/17 16:34 Hyposegmented Neuts Not Reportable 10/18/17 16:34 Hypogranular Neuts Not Reportable 10/18/17 16:34 Smudge Cells Not Reportable 10/18/17 16:34 Toxic Granulation Not Reportable 10/18/17 16:34 Toxic Vacuolation Not Reportable 10/18/17 16:34 Dohle Bodies Not Reportable 10/18/17 16:34 Pelger-Huet Anomaly Not Reportable 10/18/17 16:34 Marisa Rods Not Reportable 10/18/17 16:34 Platelet Estimate Appears decreased 10/18/17 16:34 Clumped Platelets Not Reportable 10/18/17 16:34 Plt Clumps, EDTA Not Reportable 10/18/17 16:34 Large Platelets Not Reportable 10/18/17 16:34 Giant Platelets Not Reportable 10/18/17 16:34 Platelet Satelliting Not Reportable 10/18/17 16:34 Plt Morphology Comment Not Reportable 10/18/17 16:34 RBC Morphology Not Reportable 10/18/17 16:34 Dimorphic RBCs Not Reportable 10/18/17 16:34 Polychromasia Not Reportable 10/18/17 16:34 Hypochromasia Not Reportable 10/18/17 16:34 Poikilocytosis 1+ 10/18/17 16:34 Anisocytosis 1+ 10/18/17 16:34 Microcytosis Not Reportable 10/18/17 16:34 Macrocytosis Few 10/18/17 16:34 Spherocytes Not Reportable 10/18/17 16:34 Pappenheimer Bodies Not Reportable 10/18/17 16:34 Sickle Cells Not Reportable 10/18/17 16:34 Target Cells Not Reportable 10/18/17 16:34 Tear Drop Cells Not Reportable 10/18/17 16:34 Ovalocytes Not Reportable 10/18/17 16:34 Helmet Cells Not Reportable 10/18/17 16:34 [place] Bodies Not Reportable 10/18/17 16:34 [place] Rings Not Reportable 10/18/17 16:34 [place] Cells Not Reportable 10/18/17 16:34 Bite Cells Not Reportable 10/18/17 16:34 Crenated Cell Not Reportable 10/18/17 16:34 Elliptocytes Not Reportable 10/18/17 16:34 Acanthocytes (Spur) Not Reportable 10/18/17 16:34 Rouleaux Not Reportable 10/18/17 16:34 Hemoglobin C Crystals Not Reportable 10/18/17 16:34 Schistocytes Not Reportable 10/18/17 16:34 Malaria parasites Not Reportable 10/18/17 16:34 ESR 35 mm/Hr (0-20) 10/20/17 04:59 Oracio Bodies Not Reportable 10/18/17 16:34 Hem Pathologist Commnt No 10/18/17 16:34 PT 22.6 Sec. (12.2-14.9) H 10/20/17 04:59 INR 1.86 (0.87-1.13) H 10/20/17 04:59 APTT 45.4 Sec. (24.2-36.6) H 10/20/17 04:59 POC ABG pH 7.471 (7.35-7.45) H 10/19/17 12:43 POC ABG pCO2 22.1 (35-45) L 10/19/17 12:43 POC ABG pO2 186 (80-105) H 10/19/17 12:43 POC ABG HCO3 16.1 10/19/17 12:43 POC ABG Total CO2 17 10/19/17 12:43 POC ABG O2 Sat 100 10/19/17 12:43 POC ABG Base Excess -8 10/19/17 12:43 FiO2 100 % 10/19/17 12:43 Sodium 131 mmol/L (137-145) L 10/20/17 04:59 Potassium 4.0 mmol/L (3.6-5.0) 10/20/17 04:59 Chloride 100.7 mmol/L (98-107) 10/20/17 04:59 Carbon Dioxide 19 mmol/L (22-30) L 10/20/17 04:59 Anion Gap 15 mmol/L 10/20/17 04:59 BUN 27 mg/dL (7-17) H 10/20/17 04:59 Creatinine 0.3 mg/dL (0.7-1.2) L 10/20/17 04:59 Estimated GFR > 60 ml/min 10/20/17 04:59 BUN/Creatinine Ratio 90 % 10/20/17 04:59 Glucose 112 mg/dL (65-100) H 10/20/17 04:59 POC Glucose 149 (70-105) H 10/19/17 17:14 Lactic Acid 6.90 mmol/L (0.7-2.0) H* 10/19/17 10:42 Uric Acid 4.4 mg/dL (3.5-7.6) 10/20/17 04:59 Calcium 7.8 mg/dL (8.4-10.2) L 10/20/17 04:59 Phosphorus 2.60 mg/dL (2.5-4.5) 10/19/17 11:43 Magnesium 1.70 mg/dL (1.7-2.3) 10/20/17 04:59 Total Bilirubin 3.10 mg/dL (0.1-1.2) H 10/20/17 04:59 AST 222 units/L (5-40) H 10/20/17 04:59 ALT 50 units/L (7-56) 10/20/17 04:59 Alkaline Phosphatase 124 units/L (35-129) 10/20/17 04:59 Ammonia 27.0 umol/L (25-60) 10/19/17 15:12 Total Creatine Kinase 706 units/L (30-135) H 10/18/17 16:34 Troponin T 0.315 ng/mL (0.00-0.029) H* 10/19/17 20:10 Total Protein 4.3 g/dL (6.3-8.2) L 10/20/17 04:59 Albumin 1.5 g/dL (3.9-5) L 10/20/17 04:59 Albumin/Globulin Ratio 0.5 % 10/20/17 04:59 Triglycerides 269 mg/dL (2-149) H 10/18/17 16:34 Cholesterol 195 mg/dL (50-199) 10/18/17 16:34 LDL Cholesterol Direct 85 mg/dL (50-130) 10/18/17 16:34 HDL Cholesterol 8 mg/dL (40-59) L 10/18/17 16:34 Cholesterol/HDL Ratio 24.37 % 10/18/17 16:34 Lipase 29 units/L (13-60) 10/18/17 16:34 TSH 5.060 mlU/mL (0.270-4.200) H 10/18/17 18:30 Free T4 0.62 ng/dL (0.76-1.46) L 10/18/17 18:30 Urine Color Flaca (Yellow) 10/18/17 16:28 Urine Turbidity Clear (Clear) 10/18/17 16:28 Urine pH 5.0 (5.0-7.0) 10/18/17 16:28 Ur Specific [place] 1.021 (1.003-1.030) 10/18/17 16:28 Urine Protein 30 mg/dl mg/dL (Negative) 10/18/17 16:28 Urine Glucose (UA) Neg mg/dL (Negative) 10/18/17 16:28 Urine Ketones Tr mg/dL (Negative) 10/18/17 16:28 Urine Blood Neg (Negative) 10/18/17 16:28 Urine Nitrite Neg (Negative) 10/18/17 16:28 Urine Bilirubin Neg (Negative) 10/18/17 16:28 Urine Urobilinogen 4.0 mg/dL (<2.0) 10/18/17 16:28 Ur Leukocyte Esterase Neg (Negative) 10/18/17 16:28 Urine WBC (Auto) 18.0 /HPF (0.0-6.0) H 10/18/17 16:28 Urine RBC (Auto) 45.0 /HPF (0.0-6.0) 10/18/17 16:28 U Epithel Cells (Auto) 4.0 /HPF (0-13.0) 10/18/17 16:28 Urine Bacteria (Auto) 1+ /HPF (Negative) 10/18/17 16:28 Urine Mucus 3+ /HPF 10/18/17 16:28 Plasma/Serum Alcohol < 0.01 % (0-0.07) 10/18/17 18:30
--- NOTE | 2017-10-20 17:53 | Progress Note ---
Assessment and Plan 1. 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 Will check quantitative immunoglobulin levels. Based on evaluation at [facility], [place], patient has advanced disease with thrombocytopenia, portal hypertension, and a history of SBP. While her current situation is suggestive of an infectious process and possibly pulmonary , given the lack of findings on chest x-ray, and the fact that she had SBP in the past, it is appropriate to consider that as an etiology. Patient is already on antibiotics. Ultrasound and paracentesis, if ascites is present, would be appropriate for diagnostic evaluation. Overall poor prognosis of the patient was explained to the daughters. - Check quantitative immunoglobulins. - Continue antibiotics and supportive care. - Ultrasound with paracentesis if ascites is present. - INR elevated, so will give pt trial of vit K, as a prognostic trial, though it did not help in past at [facility]. 2. Mental status changes - with hypotension. Agree that overall prognosis is poor. Subjective Date of service: 10/20/17 Interval history: Family in room. Pt not responding to voice except to open eyes. Objective - Constitutional Vitals: Vital Signs - 12hr 10/20/17 10/20/17 10/20/17 07:56 08:00 10:00 Temperature 98.6 F Pulse Rate [ 122 H 122 H Apical] O2 Sat by Pulse 99 100 100 Oximetry 10/20/17 10/20/17 12:00 16:00 Temperature 98.4 F 98.2 F Pulse Rate [ Apical] O2 Sat by Pulse Oximetry General appearance: Present: no acute distress, cachectic, other (poorly responsive) - Respiratory Respiratory: bilateral: CTA - Cardiovascular Rhythm: regular Heart Sounds: Present: S1 & S2 - Gastrointestinal General gastrointestinal: Present: soft, non-tender - Labs CBC & Chem 7: 10/20/17 04:59 10/20/17 04:59 Labs: Abnormal lab results 10/19/17 10/19/17 10/20/17 Range/Units 20:10 20:10 04:59 WBC (4.5-11.0) K/mm3 RBC (3.65-5.03) M/mm3 Hgb (10.1-14.3) gm/dl Hct (30.3-42.9) % MCV (79-97) fl MCH (28-32) pg MCHC (30-34) % RDW (13.2-15.2) % Plt Count (140-440) K/mm3 PT 22.6 H (12.2-14.9) Sec. INR 1.86 H (0.87-1.13) APTT 45.4 H (24.2-36.6) Sec. Sodium 127 L (137-145) mmol/L Chloride 94.7 L (98-107) mmol/L Carbon Dioxide 17 L (22-30) mmol/L BUN 27 H (7-17) mg/dL Creatinine 0.4 L (0.7-1.2) mg/dL Glucose 110 H (65-100) mg/dL Calcium 7.6 L (8.4-10.2) mg/dL Total Bilirubin (0.1-1.2) mg/dL AST (5-40) units/L Troponin T 0.315 H* (0.00-0.029) ng/mL Total Protein (6.3-8.2) g/dL Albumin (3.9-5) g/dL 10/20/17 10/20/17 Range/Units 04:59 04:59 WBC 12.9 H (4.5-11.0) K/mm3 RBC 2.58 L (3.65-5.03) M/mm3 Hgb 9.0 L (10.1-14.3) gm/dl Hct 25.5 L (30.3-42.9) % MCV 99 H (79-97) fl MCH 35 H (28-32) pg MCHC 35 H (30-34) % RDW 19.4 H (13.2-15.2) % Plt Count 69 L (140-440) K/mm3 PT (12.2-14.9) Sec. INR (0.87-1.13) APTT (24.2-36.6) Sec. Sodium 131 L (137-145) mmol/L Chloride (98-107) mmol/L Carbon Dioxide 19 L (22-30) mmol/L BUN 27 H (7-17) mg/dL Creatinine 0.3 L (0.7-1.2) mg/dL Glucose 112 H (65-100) mg/dL Calcium 7.8 L (8.4-10.2) mg/dL Total Bilirubin 3.10 H (0.1-1.2) mg/dL AST 222 H (5-40) units/L Troponin T (0.00-0.029) ng/mL Total Protein 4.3 L (6.3-8.2) g/dL Albumin 1.5 L (3.9-5) g/dL
[2017-10-20] MEDS ORDERED: VITAMIN K (ADULT ONLY) 10 MG in NACL 0.9% 50 ML IV ONE (17:54)
[2017-10-20] MEDS ORDERED: NACL 0.9% 1000 ML 1,000 ML IV ONE (19:50)
[2017-10-20] MEDS ORDERED: SUBLIMAZE ONE (20:58)
--- NOTE | 2017-10-20 23:02 | Consultation ---
History of Present Illness - Reason for Consult Consult date: 10/20/17 Thrombocytopenia. Requesting physician: DANA FAM - History of Present Illness Thank you for this consult, patient seen, recorde/notes reviewed, and agree with GI ,but will replace PLTif, and when needed, and FFP if any major bleeding.Prognosis remains poor. Past History Past Medical History: hepatitis, liver disease (End-stage cirrhosis, etiology unclear, but may be autoimmune or PBC. Pt has ascites, thrombocytopenia, coagulopathy, and a hx of SBP.), other Past Surgical History: No surgical history (reviewed) Social history: single. denies: smoking, alcohol abuse, prescription drug abuse Family history: no significant family history (reviewed) Medications and Allergies Allergies Allergy/AdvReac Type Severity Reaction Status Date / Time No Known Allergies Allergy Unverified 10/20/17 06:34 Active Meds: Active Medications Albuterol (Proventil) 2.5 mg IH Q4HRT PRN PRN Reason: Shortness Of Breath Hydrocortisone Sodium Succinate (Solu-Cortef) 100 mg IV Q8HR [facility] Last Admin: 10/20/17 15:24 Dose: 100 mg Vancomycin HCl (Vancomycin/Ns 500 Mg/100 Ml) 500 mg in 100 mls @ 66.667 mls/hr IV Q24H [facility] Last Admin: 10/20/17 14:23 Dose: Not Given Sodium Chloride (Nacl 0.9% 1000 Ml) 1,000 mls @ 125 mls/hr IV DIRECT [facility] Last Admin: 10/20/17 12:40 Dose: 125 mls/hr Piperacillin Sod/Tazobactam Sod (Zosyn/Ns 2.25 Gm/50ml) 2.25 gm in 50 mls @ 100 mls/hr IV Q6HR [facility] Last Admin: 10/20/17 11:29 Dose: 100 mls/hr Lactulose (Cephulac) 20 gm PO Q2HR PRN PRN Reason: Constipation Last Admin: 10/20/17 15:24 Dose: 20 gm Levothyroxine Sodium (Synthroid) 100 mcg IV DAILY@0600 [facility] Last Admin: 10/20/17 06:20 Dose: 100 mcg Ondansetron HCl (Zofran) 4 mg IV Q8H PRN PRN Reason: Nausea And Vomiting Last Admin: 10/19/17 23:30 Dose: 4 mg Oxycodone HCl (Roxicodone) 5 mg PO Q6H PRN PRN Reason: Pain, Moderate (4-6) Sodium Chloride (Sodium Chloride Flush Syringe 10 Ml) 10 ml IV BID [facility] Last Admin: 10/20/17 11:41 Dose: 10 ml Sodium Chloride (Sodium Chloride Flush Syringe 10 Ml) 10 ml IV PRN PRN PRN Reason: LINE FLUSH Vancomycin HCl (Vancomycin Pharmacy To Dose) 1 each IV PKCONSULT DANIEL; Protocol Review of Systems Breasts: deferred Exam - Constitutional Vitals: Temp Pulse Resp BP Pulse Ox 98 F 122 H 22 98/56 95 10/20/17 19:57 10/20/17 10:00 10/19/17 22:00 10/19/17 09:13 10/20/17 20:00 General appearance: Present: severe distress - EENT Eyes: Present: PERRL ENT: hearing intact, clear oral mucosa - Neck Neck: Present: supple, normal ROM - Respiratory Respiratory: bilateral: diminished - Cardiovascular Heart Sounds: Present: S1 & S2. Absent: rub, click - Extremities Extremities: pulses symmetrical, No edema Peripheral Pulses: within normal limits - Abdominal General gastrointestinal: Present: soft, non-tender, non-distended, normal bowel sounds Female genitourinary: Present: deferred - Rectal Rectal Exam: deferred - Integumentary Integumentary: Present: clear, warm, dry Results - Labs CBC & Chem 7: 10/20/17 04:59 10/20/17 04:59 Labs: Abnormal lab results 10/19/17 10/20/17 10/20/17 Range/Units 20:10 04:59 04:59 WBC 12.9 H (4.5-11.0) K/mm3 RBC 2.58 L (3.65-5.03) M/mm3 Hgb 9.0 L (10.1-14.3) gm/dl Hct 25.5 L (30.3-42.9) % MCV 99 H (79-97) fl MCH 35 H (28-32) pg MCHC 35 H (30-34) % RDW 19.4 H (13.2-15.2) % Plt Count 69 L (140-440) K/mm3 PT 22.6 H (12.2-14.9) Sec. INR 1.86 H (0.87-1.13) APTT 45.4 H (24.2-36.6) Sec. POC ABG pH (7.35-7.45) POC ABG pO2 (80-105) Sodium (137-145) mmol/L Carbon Dioxide (22-30) mmol/L BUN (7-17) mg/dL Creatinine (0.7-1.2) mg/dL Glucose (65-100) mg/dL Calcium (8.4-10.2) mg/dL Total Bilirubin (0.1-1.2) mg/dL AST (5-40) units/L Troponin T 0.315 H* (0.00-0.029) ng/mL Total Protein (6.3-8.2) g/dL Albumin (3.9-5) g/dL 10/20/17 10/20/17 Range/Units 04:59 20:56 WBC (4.5-11.0) K/mm3 RBC (3.65-5.03) M/mm3 Hgb (10.1-14.3) gm/dl Hct (30.3-42.9) % MCV (79-97) fl MCH (28-32) pg MCHC (30-34) % RDW (13.2-15.2) % Plt Count (140-440) K/mm3 PT (12.2-14.9) Sec. INR (0.87-1.13) APTT (24.2-36.6) Sec. POC ABG pH 7.195 L (7.35-7.45) POC ABG pO2 51 L (80-105) Sodium 131 L (137-145) mmol/L Carbon Dioxide 19 L (22-30) mmol/L BUN 27 H (7-17) mg/dL Creatinine 0.3 L (0.7-1.2) mg/dL Glucose 112 H (65-100) mg/dL Calcium 7.8 L (8.4-10.2) mg/dL Total Bilirubin 3.10 H (0.1-1.2) mg/dL AST 222 H (5-40) units/L Troponin T (0.00-0.029) ng/mL Total Protein 4.3 L (6.3-8.2) g/dL Albumin 1.5 L (3.9-5) g/dL Assessment and Plan - Patient Problems (1) Encephalopathy Current Visit: Yes Status: Acute Plan to address problem: supportive care. (2) Lactic acidosis Current Visit: Yes Status: Acute Plan to address problem: Due to sepsis, treat underlying issues. (3) Thrombocytopenia Current Visit: Yes Status: Acute Plan to address problem: See notes/orders.
--- NOTE | 2017-10-21 00:25 | Event Note ---
Date: 10/21/17 I WAS CALLED BY NURSE ON DUTY TO COSIGN DNR REQUEST BY FAMILY MEMBERS OF PATIENT. FIRST PHYSICIAN DOCUMENT WAS SIGNED BY DR. Josef ROBERTS ALREADY. I SPOKE WITH THE PATIENT'S DAUGHTER WHO SIGNED ON BEHALVE OF THE FAMILY AND SHE CONFIRMED THAT THE FAMILY AGREED TO MAKE PATIENT DNR BEFORE SHE SIGNED.
--- NOTE | 2017-10-21 04:09 | Event Note ---
Date: 10/21/17 CALLED TO EVALUATE A PATIENT SUSPECTED TO HAVE , O/E; PATIENT FOUND LYING LIFELESS ON HER BED WITH NO SPONTANEOUS BREATHING OR MOVEMENT. PUPILS FIXED AND DILATED , AUSCULTATION OF CHEST SHOWED NO AIR MOVEMENT. AUSCULTATION OF HEART SHOWED NO IMPULSES. PATIENT'S MONITOR SHOWED FLAT LINES IN 2-3 LEADS AND PATIENT PRONOUNCED AT 3.30 A:M WITH DAUGHTERS PRESENT.
--- NOTE | 2017-10-21 07:12 | Death Summary ---
Summary - Providers Consults: 10/19/17 09:37 Consult to Physician [CONS] Routine Comment: Consulting Provider: PRANAY ZAVALA Physician Instructions: Reason For Exam: ccm admission 10/19/17 10:04 Consult to Physician [CONS] Urgent Comment: Consulting Provider: SANA GREEN Physician Instructions: spoke with him Reason For Exam: Sodium 119 10/19/17 13:39 Consult to Dietitian/Nutrition [CONS] Routine Physician Instructions: Reason For Exam: Reason for Consult: Malnutrition Consult to Physician [CONS] Routine Comment: Consulting Provider: SALAZAR REYEZ Physician Instructions: Reason For Exam: Liver failure 10/19/17 13:43 Consult to Physician [CONS] Routine Comment: Consulting Provider: SHERLYN FELIX Physician Instructions: Reason For Exam: Elevated troponin 10/19/17 13:45 Consult to Physician [CONS] Routine Comment: Consulting Provider: CAROLINA LANG Physician Instructions: Reason For Exam: severe thrombocytopenia 10/20/17 14:50 Consult to Physician [CONS] Routine Comment: Consulting Provider: AMINAH VEGAS Physician Instructions: notified Reason For Exam: Diphtheroid in blood culture Attending: NITHYA TOVAR - summary Date of admission: 10/18/17 18:06 Date of : 10/21/17 Significant findings: Patient is a 71 yo Irish speaking woman with a history of Cirrhosis per chart (first visit here in EMR) who presented with AMS, cough, fever. She was found to have temp of 101.2 Fahrenheit, hypotension and hypoxia per EMS. Patient is not giving any history. Patient is critically ill on my initial assessment, she is arousable only by deep sternal rub, on NRB 100% fiO2. I will move to ICU. * WBC 14.0, Hgb 10.1, MCV 102, plt 35 * Na 117, k 5.4, CO2 14, BUN 28, Cr 0.6, BG 51, lactic acid 7.0, albumin 1.7, Troponin T 0.272, Ca 6.6, Total biliriubin 2.6, Alk Phos 162, AST 162, ALT 35, CPK 706, * TSH 5.060 with free t4 0.62 * UA wbc 18, 1+ bacteria * pCXR IMPRESSION: Aortic calcification and tortuosity. Prominence of the pulmonary arteries, consider pulmonary hypertension. Hyperinflation suggests obstructive physiology. Peribronchial thickening, consider bronchitis/ pneumonitis. Diffuse interstitial prominence. More focal left retrocardiac opacity. Consider atelectasis, cannot exclude pneumonia. -Acute hypoxic respiratory failure, poa: On 100% NRB, transfer to ICU, she is breathing hard and will fatigue -Sepsis with Acute Aspiration Pneumonitis and UTI: on iv zosyn, and iv vancomycin, follow cultures -Severe Hyponatremia syndrome: restart IVF resuscitation therapy which was not continued, consulted Nephrology, -Acute Undifferentiated Encephalopathy: CT Head stat, neuro check, aspiration precautions, check ammonia level -Hypoglycemia: D5, repeat serum glucose -Elevated troponin: consult Cardiology, unable to use heparin or asa due to severe thrombocytopenia, no bb due to borderline low bp, get ECHO -Metabolic acidosis s/p bicarbonate: d/w Dr. Green, renal -Hypothyroidism: IV synthroid, supportive care -End stage Liver disease: consult GI -Severe malnutrition, bmi 16.4 poa: consult [employer] -Severe thrombocytopenia, plt 35, multifactorial, most likely due to End stage liver disease, sepsis: consult Heme/onc -DVT prophylaxis: scd to ble while in bed -Advance care planning: full code, family still deciding about DNR status guarded prognosis, critically ill Blood cultures growing Diphtheroids in 1 sets: consulted ID 10/21/17 at 3:30am and pronounced by Dr. Leigh Underlying Cause of : Cirrhosis with sepsis
== END 2017-10-21 03:30 | DRG 871 ==
LOC: ED 16:01 → 4A 18:06 → CC1 10-19 16:50
PROVIDERS: ADMIT Internal Medicine; ATTEND Internal Medicine
PROC: 4A033R1 Measurement of Arterial Saturation, Peripheral, Percutaneous Approach (ICD-10-PCS; principal; 2017-10-18)
DX: A41.9 Sepsis, unspecified organism (principal); G93.40 Encephalopathy, unspecified; J69.0 Pneumonitis due to inhalation of food and vomit; J96.01 Acute respiratory failure with hypoxia; E43 Unspecified severe protein-calorie malnutrition; E87.2 Acidosis; N39.0 Urinary tract infection, site not specified; Z68.1 Body mass index [BMI] 19.9 or less, adult; E87.1 Hypo-osmolality and hyponatremia; E16.2 Hypoglycemia, unspecified; D69.6 Thrombocytopenia, unspecified; E03.9 Hypothyroidism, unspecified; K72.90 Hepatic failure, unspecified without coma; K74.60 Unspecified cirrhosis of liver; E87.5 Hyperkalemia; K75.9 Inflammatory liver disease, unspecified; E86.0 Dehydration
CPT/HCPCS: 36415; 36600; 51702; 70450; 71045; 74018; 80048; 80053; 80061; 80320; 81001; 82140; 82550; 82803; 82962; 83690; 83735; 84100; 84439; 84443; 84484; 84550; 85007; 85025; 85027; 85610; 85652; 85730; 86403; 87040; 87086; 87116; 93005; 93010; 94760; 96361; 96365; 96375; G0480; J1720; J2270; J2405; J2543; J3010; J3370; J3430; J7030; J7050